=== PATIENT | female | born 1955 | race Caucasian/White ===

== ENCOUNTER 2019-09-12 19:51 | Inpatient (IN) ==
[2019-09-12] MEDS ORDERED: CARBOHYDRATES FOR HYPOGLYCEMIA PO PRN (22:46)
[2019-09-12] MEDS ORDERED: DEXTROSE 50% 50 ML SYRINGE IV PRN (22:46)
[2019-09-12] MEDS ORDERED: GLUCAGON FOR INJ 1 MG VIAL SQ PRN (22:46)
[2019-09-12] MEDS ORDERED: GLUCOSE 40% GEL 15 GM TUBE PO PRN (22:46)
[2019-09-12] MEDS ORDERED: GLUCOSE 10 TABS/TUBE PO PRN (22:46)
--- NOTE | 2019-09-12 23:05 | History & Physical Report ---
Date of Service September 12, 2019 Assessment & Plan (1) Hypoxemia: 64yo female with history of CHF, COPD presenting to outside facility with acute hypoxic respiratory failure with oxygen saturations in the 50's requiring BiPAP. Per outside workup, patient with markedly elevated BNP, mild vascular congestion on CXR. No evidence of PNA, PTX. No concerns for COVID-19 exposure per brother. Ddx to include acute exacerbation of CHF, COPD, PE, less likely PNA, Covid-19 -Admit to PCU -Obtain CXR -BiPAP, settings increased to 18/8, 75% FiO2 due to saturations of 91%. Will repeat ABG on these settings. If patient continues to be hypoxic may need intubation and mechanical ventilation. -Check D-dimer and LLE doppler, CTA if indicated to assess for PE -Nebs as needed -Continue Diuresis with Lasix 60mg IV daily -Daily weights, strict I/Os Present on Admission?: Yes (2) CAD (coronary artery disease): Patient with history of CAD. No reports of CP. Troponin at outside facility negative. EKG with nonspecific changes, rightward axis -Repeat troponin here -Continue ASA 81mg po daily -Continue Metoprolol 25mg po daily Present on Admission?: Yes (3) Seizure: Family denies recent seizure -Continue to monitor Present on Admission?: Yes (4) TASH and COPD overlap syndrome: Currenlty on BiPAP. Repeat ABG ordered -Maintain saturations 88-92% -Nebs PRN Present on Admission?: Yes (5) CHF (congestive heart failure): Unknown specifics -Diuresis as above -Echocardiogram -Continue metoprolol Present on Admission?: Yes (6) Edema of left lower extremity: LLE edema and cellulitis -Doppler -Ceftriaxone -Vancomycin, MRSA nasal swab F/E/N - diuresis as above. Awaiting labs to assess electrolytes. NPO for now Ppx - Heparin TID, Protonix while on BiPAP Code - Full per discussion with family. Patient would not want intermediate life support measures Dispo - Admit to PCU POC - Bill (brother) [phone] Admission and Anticipated Discharge Date Admission Date: September 12, 2019 History of Present Illness Chief Complaint: SOB Primary Care Provider: NO PCP Liane Brewer is a 64yo female presenting as a direct admission from [facility]. Patient is encephalopathic at present and is unable to answer questions reliably at this time. History obtained through chart review and telephone discussion with family. Patient's brother reports that patient was acting strangely today, mildly confused and somnolent as well as having poor balance. Also with complaint of LLE pain and swelling. She denied fevers or cough. Brother reports that patient rarely leaves her house and is not concerned about exposure to COVID-19. She presented to [facility] with complaint of bilateral LE edema, L>R as well as abdominal swelling, inability to void. She was noted to be hypoxic and cyanotic on arrival with saturations of 50-52%. She was placed on Bipap with reported improvement in her mental status. Exam with bilateral LE edema, L>R. She was administered 60mg of lasix IV as well as Ceftriaxone 2gm IV. CXR with reported increased vascular congestion. Transfer to [facility] requested because of inability to obtain a LE doppler during the weekends at [facility]. Patient has no listed PCP. [facility]: Lasix 60mg IV, Ceftriaxone 2gm, BiPAP BNP=27,900 Lactate=1.5 AB.28/68/64 on 100% FiO2 Allergies Allergy/AdvReac Type Severity Reaction Status Date / Time No Known Allergies Allergy Verified 09/12/19 23:09 Home Medications Home Medications Medication Instructions Recorded Confirmed Type bumetanide 1 mg PO BID 09/12/19 09/12/19 History levothyroxine 75 mcg PO DAILY 09/12/19 09/12/19 History metformin 500 mg PO BID 09/12/19 09/12/19 History metoprolol succinate 25 mg PO DAILY 09/12/19 09/12/19 History pantoprazole 40 mg PO DAILY 09/12/19 09/12/19 History umeclidinium-vilanterol [Anoro 1 INHALATION DAILY 09/12/19 History Ellipta] Past Med/Surg History Medical History (Updated 09/12/19 @ 23:26 by Susana Stoddard DO) Alcohol use History of heavy EtOH use. Brother reports she has not been drinking x 2-3 months CAD (coronary artery disease) CHF (congestive heart failure) COPD (chronic obstructive pulmonary disease) TASH and COPD overlap syndrome Seizure Surgical History (Updated 09/12/19 @ 23:10 by Susana Stoddard DO) No significant past surgical history Family History (Updated 09/12/19 @ 23:11 by Susana Stoddard DO) Other Diabetes Dyslipidemia Heart disease Hypertension Social History Smoking Status: Current every day smoker Second Hand Exposure: No; Do You Dip or Chew Tobacco: No; Tobacco Cessation Education Requested by Patient: No Preferred Language: Divehi Communication Ability: Dec. LOC Crane Oiler Required: No Beliefs That Will Affect Care: None Current Living Situation: Family Other Information That Helps Us Care for You: No Feels Safe at Home: Yes Safety Concerns: Feels Safe At This Time Review of Systems Review of Systems: Unobtainable due to cognitive status Physical Exam Physical Exam: General: patient encephalopathic, is not answering questions or following commands, fighting with staff moving all extremities Skin: warm, dry, intact, redness and swelling of LLE HEENT: NC/AT, pupils small, reactive,anicteric sclera, conjunctiva without injection, external ear normal to inspection and nontender, nares patent, moist mucus membranes, dentition intact, no oropharyngeal lesions, neck supple, trachea midline, no LAD, no thyromegaly, no JVD Heart: +S1/S2, regular, no m/r/g Lungs: diminished breath sounds, no rales/rhonchi/wheezes Abd: obese, soft, ND, no masses/organomegaly/ascites Ext: warm, 2+ pulses in UE/LE bilaterally, bilateral LE edema, L>R 2+ pitting with redness and warmth Neuro: encephalopathic, does not answer questions or follow commands Results & Data Results & Data ([facility]) Vital Signs (Past 12 Hours) Vital Signs Temp Pulse Pulse Resp BP Pulse Ox 09/12/19 22:09 89 22 91 09/12/19 22:02 36.5 C 77 20 125/78 93 Laboratory Results PENDING LABS Diagnostic Findings PENDING CXR PENDING LLE DOPPLER Code Status & VTE Plan Code Status FULL VTE Prophylaxis Plan VTE Prophylaxis will be ordered: Yes PG Care Time/CCT Total # of Minutes Spent Total Time Spent with Patient: Total time spent is greater than 50% in coordination of care (as documented) at patient's floor/unit and/or counseling patient: Coding Level of Care Code 96548 Initial Inpt Care Lvl 3 Diagnoses Hypoxemia R09.02 CAD (coronary artery disease) I25.10 Coronary Disease-Associated Artery/Lesion type: [place] artery [place] vs. transplanted heart: [place] heart Associated angina: without angina Seizure R56.9 TASH and COPD overlap syndrome G47.33; J44.9 CHF (congestive heart failure) I50.9 Heart failure type: unspecified Heart failure chronicity: unspecified Edema of left lower extremity R60.0 (1) CAD (coronary artery disease) Coronary Disease-Associated Artery/Lesion type: [place] artery [place] vs. transplanted heart: [place] heart Associated angina: without angina Qualified Code(s): I25.10 - Atherosclerotic heart disease of [place] coronary artery without angina pectoris (2) CHF (congestive heart failure) Heart failure type: unspecified Heart failure chronicity: unspecified Qualified Code(s): I50.9 - Heart failure, unspecified
[2019-09-12] MEDS ORDERED: PATIENT'S ALLERGY INFO NEEDS ENTERED SCH (23:15)
[2019-09-12] MEDS ORDERED: VANCOMYCIN CONSULT ACTIVE PRN (23:29)
[2019-09-12 23:35] LABS: Basophils # (auto) 0.02 K/uL (0-0.2); Basophils % (auto) 0.2 %; Eosinophils # (auto) 0.09 K/uL (0-0.5); Eosinophils % (auto) 0.9 %; Hematocrit (blood only) 45.9 % (37-47); Hemoglobin 13.8 g/dL (12.0-16.0); Immature Granulocytes # (auto) 0.02 K/uL (0.00-0.02); Immature Granulocytes % (auto) 0.2 %; Lymphocytes # (auto) 1.74 K/uL (1.2-3.4); Mean Corpuscular Hemoglobin 26.3 pg (25-34); Mean Corpuscular Hgb Conc 30.1 g/dL (32-36); Mean Corpuscular Volume 87.6 fL (80-100); Mean Platelet Volume 9.1 fL (7.4-10.4); Monocytes # (auto) 0.96 K/uL (0.11-0.59); Monocytes % (auto) 9.4 %; Neutrophils # (auto) 7.42 K/uL (1.4-6.5); Neutrophils % (auto) 72.3 %; Platelet Count 418 K/uL (130-400); RDW Coefficient of Variation 17.9 % (11.5-14.5); RDW Standard Deviation 56.9 fL (36.4-46.3); Red Blood Count 5.24 M/uL (4.2-5.4); White Blood Count 10.25 K/uL (4.8-10.8)
[2019-09-12 23:38] LABS: Base Excess ABG 3.6 mEq/L (-9-1.8); HCO3 ABG 34 mmol/L (19-24); Oxygen Saturation ABG 92.5 % (90-95); PCO2 ABG 85 mmHg (35-46); PO2 ABG 75 mmHg (80-95); pH ABG 7.22 (7.35-7.45)
[2019-09-12 23:39] LABS: Allen Test POS (Pos)
[2019-09-12 23:52] LABS: Alanine Aminotransferase 17 U/L (12-78); Albumin Level 3.2 gm/dl (3.4-5.0); Aspartate Aminotransferase 18 U/L (15-37); BUN Creatinine Ratio 23.4 (10-20); Bilirubin Direct < 0.1 mg/dl (0-0.2); Blood Urea Nitrogen 37 mg/dl (7-18); Calcium 8.6 mg/dl (8.5-10.1); Carbon Dioxide 32 mmol/L (21-32); Chloride 102 mmol/L (98-107); Creatinine Clr Calc Pharmacy 38.5 ml/min; Est GFR (African American) 39.1; Est GFR (Non-African American) 33.7; Glucose 114 mg/dl (70-99); Magnesium 2.1 mg/dl (1.8-2.4); Potassium 4.1 mmol/L (3.5-5.1); Sodium 138 mmol/L (136-145)
[2019-09-12 23:53] LABS: D Dimer 1670 ug/L FEU (0-500)
[2019-09-13] MEDS: ALBUT/IPRATROP 3MG/0.5MG NEB 3 ML VIAL NEB SCH ×4 (00:06→18:51)
[2019-09-13 00:14] LABS: Alkaline Phosphatase 131 U/L (45-117); Bilirubin,Total 0.3 mg/dl (0.2-1); NT Pro B Type Natriuretic Pept 20844 pg/ml (0-900); Phosphorus 4.2 mg/dl (2.5-4.9); Total Protein 7.6 gm/dl (6.4-8.2); Troponin I 0.078 ng/ml (0-0.045)
[2019-09-13] MEDS: INSULIN ASPART 100 UNITS/ML 3 ML PEN SC SCH ×4 (00:29→18:14)
[2019-09-13] MEDS ORDERED: VANCOMYCIN HCL 1,750 MG in SODIUM CHLORIDE 0.9% 500 ML IV ONE (00:30)
[2019-09-13 00:40] LABS: Amphetamines+Metham, Urine Neg (Neg); Barbiturates, Urine Neg (Neg); Benzodiazepine, Urine Neg (Neg); Cocaine, Urine Neg (Neg); MDMA (Ecstacy), Urine Neg (Neg); Methadone, Urine Neg (Neg); Opiate, Urine Neg (Neg); Phencyclidine, Urine Neg (Neg)
[2019-09-13] MEDS ORDERED: ALBUT/IPRATROP 3MG/0.5MG NEB 3 ML VIAL NEB STA (01:33)
[2019-09-13] MEDS ORDERED: methylPREDNISolone 80 MG in SYRINGE 0 ML IV ONE (01:45)
[2019-09-13] MEDS ORDERED: RAPID SEQUENCE INDUCTION BAG ONE (02:07)
[2019-09-13 02:14] LABS: iSTAT Arterial Blood Gas HCO3 35 meg/L (19-24); iSTAT Arterial Blood Gas pCO2 95 mmHg (35-46); iSTAT Arterial Blood Gas pH 7.18 (7.35-7.45); iSTAT Arterial Blood Gas pO2 97 mmHg (80-95); iSTAT Carbon Dioxide 38 mmol/L (24-31); iSTAT FiO2 80 %; iSTAT Site L Radial
[2019-09-13] MEDS ORDERED: PROPOFOL IV EMULSION 10 MG/ML 100 ML VIAL IV ONE (02:18)
[2019-09-13] MEDS ORDERED: ePHEDrine sulfate 50 MG/ML AMP ONE (02:23)
[2019-09-13] MEDS ORDERED: FENTANYL BOLUS FROM BAG IV PRN (02:28)
[2019-09-13] MEDS ORDERED: MIDAZOLAM HCL 1 MG/ML 2ML VIAL IV PRN (02:28)
[2019-09-13] MEDS ORDERED: STAT IV Infusion **Titration per Protocol STA ×2 (02:28→03:15)
[2019-09-13 02:29] LABS: T4 Free Thyroxine 1.01 ng/dl (0.8-1.6)
[2019-09-13] MEDS ORDERED: fentaNYL DRIP 1,250 MCG/250 ML BAG IV SCH (02:30)
--- NOTE | 2019-09-13 02:38 | Procedure Note ---
Procedure Note Date of Service September 13, 2019 Note INTUBATION PROCEDURE NOTE: Provider: BOB Hernandez Attending: Dr. Too Lazcano A time-out was completed verifying correct patient, procedure, site, positioning. Patient was evaluated and required intubation for acute hypoxic/hypercapnic respiratory failure with failure of BiPAP therapy. Sedative agent used: Etomidate 20 mg, midazolam 2 mg Paralysis agent used: Succinylcholine 100 mg Emergent consent was implied given patients rapidly declining clinical status and need for airway protection. The patient was prepared in the appropriate fashion. Sedation was achieved utilizing etomidate and diazepam followed by succinylcholine, per Dr. Zhao administration. The patient was easily pre-ventilated with BiPAP prior to intubation and was able to achieve adequate oxygenation. A 7.5 [place] endotracheal tube was placed with the use of gluidescope to 23 cm at the lip. The stylette was removed and balloon was inflated with 10mL of air. Appropriate Colorimetric change was appreciated. Bilateral breath sounds were heard without air sounds in the abdomen. Dr. Zhao was present for the entire procedure. Post Intubation Chest X-ray confirms placement without pneumothorax. Patient did become hypotensive temporarily following sedation administration, and 10 mg of ephedrine was administered by anesthesia with good result. Patient's blood pressure recovered and she remains normotensive following procedure without need for vasopressors. Coding CPT Codes Resuscitation - Resuscitation: 50225 Endotracheal Intubation, emergency ([id number]) [facility] – [place] Procedure Codes (Charges) Resuscitation Resuscitation: 02176 Endotracheal Intubation, emergency
--- NOTE | 2019-09-13 02:38 | Critical Care Consultation ---
Date of Consultation September 13, 2019 Assessment & Plan (1) Respiratory failure with hypoxia and hypercapnia: Reason Critically Ill: 64-year-old female with history of COPD, CHF with hypoxic hypercapnic respiratory failure and failed BiPAP requiring intubation with mechanical ventilation. Neuro - Encephalopathylikely secondary to hypercapnia as patient CO2 was elevated in the 80s the patient exhibited respiratory acidosis -Mild elevation of ammonia of 45, will continue to monitor for now -BUN mildly elevated, trending Cardiac - CHFpatient with history of CHF, BNP 20,000 -Given 60 IV Lasix at outside hospital with over 2 L output; continue with diuresis with scheduled IV Lasix 60 mg daily -Follow-up cardiac echo -Daily weights, strict I's and O's -Continue ASA, MTP -Continuous monitor on telemetry Respiratory - Acute hypoxic hypercapnic respiratory failurepatient initially placed on BiPAP but failed, required emergent intubation and now mechanically ventilated -Weaning vent as tolerated with ABGs - most likely mixed COPD versus CHF exacerbation in etiology -CTA chest preliminary read: bilateral opacities, small pleural effusions, no evidence of PE -Cannot rule out infectious pulmonary infiltrate at this time, see management of pneumonia below -PE?Patient with unilateral lower extremity swelling, elevated d-dimer, bilateral lower extremity ultrasound pending -No evidence of large PE on CTA chest, will follow-up final read -De-escalated airborne precautions as patient's rapid COVID-19 test negative, no fevers, no lymphocytopenia -Started on IV Solu-Medrol, continue scheduled duo nebs -Continue diuresis -Continuous monitoring on pulse ox and end-tidal CO2 GI - N.p.o. Continue PPI RENAL/LYTES - AKIno known history of CKD, no baseline creatinine. Creatinine elevated 1.6 on admission, unsure of etiology at this time -Maintain maps greater than 65 -Avoid nephrotoxins -We will hold on IV fluid resuscitation as patient has CHF and acute respiratory failure -Trend with routine BMPs, monitor electrolytes and replete as indicated - Foleystrict I's and O's ENDO - DM type IIholding home dose metformin, will transition to sliding scale -Hemoglobin A1c pending -ICU hyperglycemic protocol HypothyroidismTSH elevated, patient with home dose Synthroid, question medication compliance -T4 currently pending HEME - H&H stable, monitor routine CBCs ID - Pneumonia?Patient with respiratory failure and bilateral consolidations on CT chest, however afebrile and no leukocytosis -MRSA nasal PCR positive -Continue ceftriaxone and vancomycin for now -Procalcitonin pending, blood cultures pending, UA pending LINES/IV ACCESS - Peripheral IVs, ETT, OGT DVT PROPHYLAXIS - SCDs, heparin subcu Unilateral lower extremity edema of left legquestion DVT, no PE on CTA chest -Ultrasound lower extremity pending I have personally spent 70 minutes of critical care time in the direct management of this patient. This is a life/limb threatening event. This includes time spent evaluating patient, direct bedside care, chart review, placing orders, interpretation of diagnostic studies, discussion with consultants, patient, and family members, as well as other required patient management activities. This time is exclusive of all separately billable procedures, and teaching time and separate from and in addition to any other critical care service time. Thank you for allowing us to participate in the care of this patient. Please refer to my attending physician's documentation for any further recommendations. (2) Alcohol use: (3) Edema of left lower extremity: (4) COPD (chronic obstructive pulmonary disease): (5) CHF (congestive heart failure): (6) CAD (coronary artery disease): Supervising Physician Co-Signing Physician Notes Patient seen and examined. Discussed with critical care YULIA. Images were reviewed. Discussed with ICU nurse at bedside 64-year-old female with multiple medical conditions and potential noncompliance. She is admitted with hypoxemic and hypercarbic respiratory failure. Chest x- ray shows fluid overload confirmed on CT scan. She has a history of sleep disordered breathing is unclear if she is compliant with positive airway pressure in the outpatient setting. Differential diagnosis at this point in time would include COPD exacerbation, heart failure exacerbation, and obesity hypoventilation syndrome. Not entirely convinced there is an infectious process. Procalcitonin is pending. Will check echocardiogram. Continue diuretics and bronchodilators. Hold on additional steroids for now. Continue mechanical ventilation and sedation with propofol today. If needed can use low doses of Versed and fentanyl. Hold on nutrition in the hopes that the patient can be stabilized and extubated in the next 24 hours. If not, will need to initiate enteric tube feeding. Continue DVT prophylaxis. No family immediately available. Additional critical care time: 45 minutes History of Present Illness Attending Physician: Susana Stoddard DO History of Present Illness Ms. Arzate is a 64-year-old female with PMH of COPD (actively smokes 1 PPD), CHF, DM type II, hypothyroid, who initially presented to [facility] yesterday as encephalopathic and was hypoxic with sats in the 50s. The patient's brother had noticed that she was acting strangely and confused and somnolent throughout the day. She was placed on BiPAP, given IV Lasix and transferred to [facility] where she was admitted to PCU. Patient had become increasingly hypercapnic with worsening respiratory acidosis on BiPAP she was transferred to the ICU and required intubation with mechanical ventilation. She had bilateral lower extremity edema left greater than right, and was taken for CTA of the chest which was negative for visible PE. COVID-19 test was negative and she has no fevers or lymphocytopenia, and brother states that she hardly leaves her house, and airborne precautions were de-escalated on transfer. Prior to intubation patient was able to arouse with stimulation and follow commands but remains confused. Patient is now intubated and sedated and to remain in ICU for further management at this time. Allergies Allergy/AdvReac Type Severity Reaction Status Date / Time No Known Allergies Allergy Verified 09/12/19 23:09 Home Medications Home Medications Medication Instructions Recorded Confirmed Type bumetanide 1 mg PO BID 09/12/19 09/12/19 History levothyroxine 75 mcg PO DAILY 09/12/19 09/12/19 History metformin 500 mg PO BID 09/12/19 09/12/19 History metoprolol succinate 25 mg PO DAILY 09/12/19 09/12/19 History pantoprazole 40 mg PO DAILY 09/12/19 09/12/19 History umeclidinium-vilanterol [Anoro 1 INHALATION DAILY 09/12/19 History Ellipta] Patient History Medical History (Updated 09/13/19 @ 02:40 by BOB Iraheta) Alcohol use History of heavy EtOH use. Brother reports she has not been drinking x 2-3 months CAD (coronary artery disease) CHF (congestive heart failure) COPD (chronic obstructive pulmonary disease) TASH and COPD overlap syndrome Seizure Surgical History (Updated 09/12/19 @ 23:10 by Susana Stoddard DO) No significant past surgical history Family History (Updated 09/12/19 @ 23:11 by Susana Stoddard DO) Other Diabetes Dyslipidemia Heart disease Hypertension Social History Smoking Status: Current every day smoker Second Hand Exposure: No; Do You Dip or Chew Tobacco: No; Tobacco Cessation Education Requested by Patient: No Preferred Language: Argentine Communication Ability: Dec. LOC Computer Meteorologist Required: No Beliefs That Will Affect Care: None Current Living Situation: Family Other Information That Helps Us Care for You: No Feels Safe at Home: Yes Safety Concerns: Feels Safe At This Time Review of Systems Review of Systems: Unobtainable due to cognitive status and Unobtainable due to reduced consciousness Physical Exam Constitutional: + ill appearing, + frail appearing and + mechanically ventilated Eyes: PERRL, conjunctivae normal, anicteric sclerae ENMT: external ear and nose normal, oropharynx normal Neck: trachea midline, no thyromegaly Respiratory: Diminished breath sounds bilaterally, no wheezing or crackles auscultated. Symmetrical chest wall movement. Cardiovascular: Rate/Rhythm: regular rate and regular rhythm Heart Sounds: normal S1 and normal S2 Vessels: no JVD Unilateral edema in left lower extremity Gastrointestinal (Abdomen): Abdomen soft, distended, bowel sounds auscultated all 4 quadrants Musculoskeletal: Extremities: + clubbing Neurologic: PERRL, EOMI, accommodation nl, no face palsy, no dysarthria Psychiatric: Orientation: oriented to person; + not oriented to place and + not oriented to time Genitourinary: Indwelling Avery catheter Results & Data Results & Data ([facility]) Vital Signs (Past 12 Hours) Vital Signs Temp Pulse Pulse Resp BP Pulse Ox Pulse Ox 09/13/19 00:10 66 17 95 09/13/19 00:08 66 17 95 09/12/19 23:27 36.4 C L 71 20 125/76 91 09/12/19 23:00 95 09/12/19 22:09 89 22 91 09/12/19 22:02 36.5 C 77 20 125/78 93 Coding Level of Care Code Critical Care 1st 30-74 mins Diagnoses Respiratory failure with hypoxia and hypercapnia J96.91; J96.92 Alcohol use Z72.89 Edema of left lower extremity R60.0 COPD (chronic obstructive pulmonary disease) J44.9 CHF (congestive heart failure) I50.9 Heart failure chronicity: unspecified Heart failure type: unspecified CAD (coronary artery disease) I25.10 Associated angina: without angina Coronary Disease-Associated Artery/Lesion type: [place] artery [place] vs. transplanted heart: [place] heart Time Spent (min) 84 (1) CAD (coronary artery disease) Associated angina: without angina Coronary Disease-Associated Artery/Lesion type: [place] artery [place] vs. transplanted heart: [place] heart Qualified Code(s): I25.10 - Atherosclerotic heart disease of [place] coronary artery without angina pectoris (2) CHF (congestive heart failure) Heart failure chronicity: unspecified Heart failure type: unspecified Qualified Code(s): I50.9 - Heart failure, unspecified
[2019-09-13] MEDS: propofoL 1,000 MG/100 ML VIAL IV SCH ×3 (02:45→19:16)
[2019-09-13] MEDS: fentaNYL citrate 100 MCG/2 ML VIAL IV PRN (03:14)
[2019-09-13] MEDS ORDERED: PROPOFOL BOLUS FROM BAG IV PRN (03:15)
[2019-09-13] MEDS ORDERED: ICU PROTOCOL FOR HYPERGLYCEMIA PRN (03:16)
[2019-09-13 03:31] LABS: iSTAT Allen Test Pass; iSTAT Art Bld Gas pCO2 Correct 49 mmHg (35-46); iSTAT Art Bld Gas pH Corrected 7.409 (7.35-7.45); iSTAT Arterial Blood Gas HCO3 31 meg/L (19-24); iSTAT Arterial Blood Gas pCO2 50 mmHg (35-46); iSTAT Arterial Blood Gas pO2 68 mmHg (80-95); iSTAT Arterial Blood Gas pO2 C 66; iSTAT Carbon Dioxide 32 mmol/L (24-31); iSTAT FiO2 80 %; iSTAT Hematocrit 44 % (37-47); iSTAT Potassium 3.9 mmol/L (3.3-5.0); iSTAT Site L Radial; iSTAT Sodium 140 mmol/L (135-144)
[2019-09-13 03:42] LABS: Basophils # (auto) 0.02 K/uL (0-0.2); Basophils % (auto) 0.2 %; Eosinophils # (auto) 0.02 K/uL (0-0.5); Eosinophils % (auto) 0.2 %; Hematocrit (blood only) 45.9 % (37-47); Hemoglobin 13.9 g/dL (12.0-16.0); Immature Granulocytes # (auto) 0.01 K/uL (0.00-0.02); Immature Granulocytes % (auto) 0.1 %; Lymphocytes # (auto) 0.92 K/uL (1.2-3.4); Lymphocytes % (auto) 9.5 %; Mean Corpuscular Hemoglobin 26.4 pg (25-34); Mean Corpuscular Hgb Conc 30.3 g/dL (32-36); Mean Corpuscular Volume 87.1 fL (80-100); Mean Platelet Volume 9.1 fL (7.4-10.4); Monocytes # (auto) 0.42 K/uL (0.11-0.59); Monocytes % (auto) 4.3 %; Neutrophils # (auto) 8.29 K/uL (1.4-6.5); Neutrophils % (auto) 85.7 %; Nucleated RBC # (auto) 0.03 K/uL (0-0); Nucleated RBC % (auto) 0.3 %; Platelet Count 321 K/uL (130-400); RDW Coefficient of Variation 17.6 % (11.5-14.5); RDW Standard Deviation 55.9 fL (36.4-46.3); Red Blood Count 5.27 M/uL (4.2-5.4); White Blood Count 9.68 K/uL (4.8-10.8)
[2019-09-13] MEDS ORDERED: ePHEDrine sulfate 50 MG/ML AMP IV STA (03:48)
[2019-09-13 04:01] LABS: Albumin Level 3.1 gm/dl (3.4-5.0); BUN Creatinine Ratio 23.5 (10-20); Calcium 8.5 mg/dl (8.5-10.1); Creatinine Clr Calc Pharmacy 40.6 ml/min; Est GFR (African American) 41.6; Est GFR (Non-African American) 35.9; Potassium 4.2 mmol/L (3.5-5.1)
[2019-09-13 04:13] LABS: Albumin Globulin Ratio 0.7 (0.9-2); Bilirubin,Total 0.5 mg/dl (0.2-1); Globulin 4.7 gm/dl (2.5-4.0); Phosphorus 3.6 mg/dl (2.5-4.9); Total Protein 7.8 gm/dl (6.4-8.2)
[2019-09-13] MEDS: HEPARIN SOD 5,000 UNIT/0.5 ML VIAL SQ SCH ×3 (05:16→22:13)
[2019-09-13] MEDS: LEVOTHYROXINE SODIUM 75 MCG TABLET PO SCH (05:17)
[2019-09-13 05:59] LABS: iSTAT Allen Test Pass; iSTAT Art Bld Gas pCO2 Correct 40 mmHg (35-46); iSTAT Art Bld Gas pH Corrected 7.463 (7.35-7.45); iSTAT Arterial Blood Gas HCO3 29 meg/L (19-24); iSTAT Arterial Blood Gas pCO2 41 mmHg (35-46); iSTAT Arterial Blood Gas pH 7.46 (7.35-7.45); iSTAT Arterial Blood Gas pO2 71 mmHg (80-95); iSTAT Arterial Blood Gas pO2 C 68; iSTAT Carbon Dioxide 30 mmol/L (24-31); iSTAT FiO2 80 %; iSTAT Hematocrit 44 % (37-47); iSTAT Potassium 3.9 mmol/L (3.3-5.0); iSTAT Site R Radial; iSTAT Sodium 140 mmol/L (135-144)
--- NOTE | 2019-09-13 06:18 | XRay Report ---
XR chest 1V portable CLINICAL HISTORY: intubation tube position COMPARISON STUDY: 09/12/2019 FINDINGS: Endotracheal tube 4 cm above the pradip. Heart remains enlarged. Persistent consolidative c hanges left lung base. Unchanged pulmonary vascular congestion IMPRESSION: 1. Endotracheal tube 4 cm above the pradip. 2. Nasogastric tube inferior to the diaphragm. 3. Study is otherwise unchanged. ACT 112: Negative or not required by law. The above report was generated using voice recognition software. It may contain grammatical, syntax or spelling errors. Electronically signed by: Alvaro Mauro M.D. 09/13/2019 6:16 AM
--- NOTE | 2019-09-13 06:44 | CT Scan Report ---
CT angio chest PE protocol CT DOSE: 678.51 mGy.cm HISTORY: Chest pain. Dyspnea. PE TECHNIQUE: Multiaxial CT images of the chest were performed following the intravenous administration of contrast to evaluate the pulmonary arteries. Maximal intensity projection images were also obtaine d. A dose lowering technique was utilized adhering to the principles of ALARA. COMPARISON STUDY: None. FINDINGS: Thoracic aorta is normal in course and caliber. Pulmonary vasculature enhances appropriatel y. Bibasilar parenchymal infiltrates are present combine with basilar consolidative change. The heart is moderately enlarged with a small pericardial effusion. The pulmonary vasculature is prominent. There are interstitial changes in the mid to upper lungs bila terally. IMPRESSION: 1. Study is negative for pulmonary embolus. 2. Bibasilar parenchymal infiltrates. 3. Interstitial changes in the mid upper lungs bilaterally. ACT 112: Negative or not required by law. The above report was generated using voice recognition software. It may contain grammatical, syntax or spelling errors. Electronically signed by: Alvaro Mauro M.D. 09/13/2019 6:42 AM
--- NOTE | 2019-09-13 07:01 | CT Scan Report ---
CT head/brain wo con CT DOSE: 614.27 mGy.cm HISTORY: Mental status change AMS TECHNIQUE: Multiaxial CT images of the head were performed without the use of intravenous contrast. A dose lowering technique was utilized adhering to the principles of ALARA. Comparison: None. Findings: The paranasal sinuses and mastoid air cells are clear. The calvarium and skull base are int act. The ventricles and sulci are within normal limits. There is no mass, hematoma, midline shift, or acute infarct. Impression: No acute intracranial abnormality. ACT 112: Negative or not required by law. The above report was generated using voice recognition software. It may contain grammatical, syntax or spelling errors. Electronically signed by: Alvaro Mauro M.D. 09/13/2019 6:59 AM
--- NOTE | 2019-09-13 07:14 | Ultrasound Report ---
US venous doppler LE LT CLINICAL HISTORY: swelling, redness PAIN. EDEMA. COMPARISON STUDY: No previous studies for comparison. FINDINGS: Real-time and color flow Doppler imaging were performed. Flow was seen within the femoral, popliteal and calf veins with no intraluminal thrombus demonstrated. The saphenous vein is patent. IMPRESSION: No evidence of deep venous thrombosis. 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 ACT 112: Negative or not required by law. The above report was generated using voice recognition software. It may contain grammatical, syntax or spelling errors. Electronically signed by: Alvaro Mauro M.D. 09/13/2019 7:13 AM
--- NOTE | 2019-09-13 07:40 | XRay Report ---
XR chest 1V portable CLINICAL HISTORY: SOB dyspnea COMPARISON STUDY: No previous studies for comparison. FINDINGS: Moderate cardiomegaly. Prominent parenchymal and bronchovascular prominence throughout both hemithoraces. Potential superimposed infiltrate left base. IMPRESSION: 1. Congestive heart failure. 2. Superimposed infiltrate left base. ACT 112: Negative or not required by law. The above report was generated using voice recognition software. It may contain grammatical, syntax or spelling errors. Electronically signed by: Alvaro Mauro M.D. 09/13/2019 7:39 AM
[2019-09-13] MEDS: FORMOTEROL 20 MCG/2 ML VIAL NEB SCH ×2 (07:48→18:51)
[2019-09-13] MEDS ORDERED: SUCCINYLCHOLINE CHLORIDE 20 MG/ML 10 ML VIAL IV ONE (07:48)
[2019-09-13] MEDS ORDERED: ETOMIDATE 2 MG/ML 20 ML VIAL IV ONE (07:48)
[2019-09-13] MEDS ORDERED: MIDAZOLAM HCL 5 MG/ML VIAL IV ONE (07:48)
[2019-09-13] MEDS: BUDESONIDE 0.5 MG/2 ML VIAL (PULMICORT) NEB SCH ×2 (07:48→18:51)
[2019-09-13] MEDS ORDERED: PNEUMOCOCCAL Polysaccharide Vaccine 25mcg/0.5mL vial/Syr IM ONE (08:00)
[2019-09-13 08:02] LABS: Estimated Average Glucose 131 mg/dl; Hemoglobin A1C 6.2 % (4.5-5.6)
[2019-09-13] MEDS ORDERED: ICU ELECTROLYTE REPLACEMENT PROTOCOL PRN (08:08)
--- NOTE | 2019-09-13 08:22 | Hospitalist Progress Note ---
Date of Service September 13, 2019 Assessment & Plan (1) Hypoxemia: 64yo female with history of CHF, COPD presenting to outside facility with acute hypoxic respiratory failure with oxygen saturations in the 50's requiring BiPAP. Per outside workup, patient with markedly elevated BNP, mild vascular congestion on CXR. No evidence of PNA, PTX. No concerns for COVID-19 exposure per brother. Ddx to include acute exacerbation of CHF, COPD, PE, less likely PNA, Covid-19 Pt decompensated shortly after admission and is now intubated with mechanical ventilation -Continue Diuresis with Lasix 60mg IV daily possible Pneumonia, COVID NEGATIVE->ceftriaxone and azithromycin CTA 09/12/29 IMPRESSION: 1. Study is negative for pulmonary embolus. 2. Bibasilar parenchymal infiltrates. 3. Interstitial changes in the mid upper lungs bilaterally. (2) CAD (coronary artery disease): Patient with history of CAD. No reports of CP. Troponin 0.07 x2 EKG with nonspecific changes, rightward axis -Continue ASA 81mg daily -Continue Metoprolol 25mg daily (3) Seizure: Family denies recent seizure no typically on medicaiton (4) TASH and COPD overlap syndrome: maintain brhochodialators (5) CHF (congestive heart failure): Unknown specifics of EF -Diuresis as above -Echocardiogram -Continue metoprolol (6) Edema of left lower extremity: LLE edema and cellulitis -Doppler no DVT but note of occlusion of left femoral and popliteal artery with collateral reconstitution -Ceftriaxone - Vancomycin, MRSA nasal swab + insulin sliding scale was given iv steroids x1 Ppx - Heparin TID, Protonix while on BiPAP Code - Full per discussion with family. 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 Head exam is normocephalic atraumatic no scleral icterus Neck is without JVD, thyromegaly, or carotid bruits. Trachea is midline Lungs are coarse bilaterally Cardiac exam, Rhythm is regular.. No murmurs, rubs or gallops. Abdominal exam reveals hypoactive bowel sounds distended tympanitic Extremities left extremity is larger than right some redness Neurologic exam is not able to be assessed Skin is without bruises or rashes Results & Data Results & Data ([facility]) Vital Signs (Past 12 Hours) Vital Signs Temp Pulse Pulse Resp BP BP Pulse Ox 09/13/19 08:03 72 16 92 09/13/19 07:35 68 09/13/19 07:30 68 122/67 95 09/13/19 07:15 68 122/67 94 09/13/19 07:09 70 124/65 93 09/13/19 07:01 69 97 09/13/19 07:00 69 121/64 97 09/13/19 06:48 76 126/73 92 09/13/19 06:01 68 16 99 09/13/19 06:00 68 99 09/13/19 05:21 66 113/63 100 09/13/19 05:19 65 111/62 99 09/13/19 05:17 64 113/59 L 100 09/13/19 05:15 64 112/63 99 09/13/19 05:13 64 112/61 99 09/13/19 05:11 64 109/61 99 09/13/19 05:09 65 105/63 100 09/13/19 05:07 64 112/61 99 09/13/19 05:05 64 110/60 99 09/13/19 05:03 63 107/59 L 99 09/13/19 05:01 65 105/59 L 98 09/13/19 05:00 65 98 09/13/19 04:59 65 119/62 99 09/13/19 04:57 64 106/59 L 99 09/13/19 04:55 62 107/59 L 99 09/13/19 04:53 62 104/57 L 99 09/13/19 04:51 61 104/59 L 99 09/13/19 04:49 63 105/59 L 99 09/13/19 04:47 63 107/61 99 09/13/19 04:45 64 108/58 L 99 09/13/19 04:43 72 103/61 99 09/13/19 04:41 62 105/59 L 98 09/13/19 04:39 61 101/57 L 98 09/13/19 04:37 60 104/57 L 98 09/13/19 04:35 60 99/56 L 98 09/13/19 04:33 61 99/57 L 98 09/13/19 04:31 60 100/57 L 98 09/13/19 04:29 61 100/57 L 98 09/13/19 04:27 60 105/57 L 97 09/13/19 04:25 63 100/60 97 09/13/19 04:23 62 106/58 L 97 09/13/19 04:20 61 102/60 97 09/13/19 04:18 62 97/61 L 97 09/13/19 04:16 62 98/51 L 97 09/13/19 04:15 62 101/56 L 96 09/13/19 04:13 61 96/52 L 97 09/13/19 04:10 59 L 96/55 L 97 09/13/19 04:08 60 98/58 L 97 09/13/19 04:06 60 97/54 L 97 09/13/19 04:04 60 97/56 L 97 09/13/19 04:02 61 98/56 L 96 09/13/19 04:01 97.7 F 62 96 09/13/19 04:00 61 101/59 L 96 09/13/19 03:22 20 09/13/19 02:39 69 24 93 09/13/19 01:51 72 17 92 09/13/19 00:10 66 17 95 09/13/19 00:08 66 17 95 09/12/19 23:27 97.5 F L 71 20 125/76 91 09/12/19 23:00 09/12/19 22:09 89 22 91 09/12/19 22:02 97.7 F 77 20 125/78 93 Pulse Ox 09/13/19 08:03 09/13/19 07:35 09/13/19 07:30 09/13/19 07:15 09/13/19 07:09 09/13/19 07:01 09/13/19 07:00 09/13/19 06:48 09/13/19 06:01 09/13/19 06:00 09/13/19 05:21 09/13/19 05:19 09/13/19 05:17 09/13/19 05:15 09/13/19 05:13 09/13/19 05:11 09/13/19 05:09 09/13/19 05:07 09/13/19 05:05 09/13/19 05:03 09/13/19 05:01 09/13/19 05:00 09/13/19 04:59 09/13/19 04:57 09/13/19 04:55 09/13/19 04:53 09/13/19 04:51 09/13/19 04:49 09/13/19 04:47 09/13/19 04:45 09/13/19 04:43 09/13/19 04:41 09/13/19 04:39 09/13/19 04:37 09/13/19 04:35 09/13/19 04:33 09/13/19 04:31 09/13/19 04:29 09/13/19 04:27 09/13/19 04:25 09/13/19 04:23 09/13/19 04:20 09/13/19 04:18 09/13/19 04:16 09/13/19 04:15 09/13/19 04:13 09/13/19 04:10 09/13/19 04:08 09/13/19 04:06 09/13/19 04:04 09/13/19 04:02 09/13/19 04:01 09/13/19 04:00 09/13/19 03:22 09/13/19 02:39 09/13/19 01:51 09/13/19 00:10 09/13/19 00:08 09/12/19 23:27 09/12/19 23:00 95 09/12/19 22:09 09/12/19 22:02 PG Care Time/CCT Total # of Minutes Spent Total Time Spent with Patient: Total time spent is greater than 50% in coordination of care (as documented) at patient's floor/unit and/or counseling patient: Coding Level of Care Code 96454 Subseq Hosp Care Lvl 2 Diagnoses Hypoxemia R09.02 CAD (coronary artery disease) I25.10 Associated angina: without angina Coronary Disease-Associated Artery/Lesion type: [place] artery [place] vs. transplanted heart: [place] heart Seizure R56.9 TASH and COPD overlap syndrome G47.33; J44.9 CHF (congestive heart failure) I50.9 Heart failure chronicity: unspecified Heart failure type: unspecified Edema of left lower extremity R60.0 (1) CAD (coronary artery disease) Associated angina: without angina Coronary Disease-Associated Artery/Lesion type: [place] artery [place] vs. transplanted heart: [place] heart Qualified Code(s): I25.10 - Atherosclerotic heart disease of [place] coronary artery without angina pectoris (2) CHF (congestive heart failure) Heart failure chronicity: unspecified Heart failure type: unspecified Qualified Code(s): I50.9 - Heart failure, unspecified
[2019-09-13] MEDS ORDERED: PANTOprazole 40 MG TAB PO SCH (09:00)
[2019-09-13] MEDS ORDERED: METOPROLOL SUCC 25MG EXT REL TAB PO SCH (09:00)
[2019-09-13] MEDS: cefTRIAXone SODIUM 2,000 MG in DEXTROSE 5% 50 ML IV SCH (09:08)
[2019-09-13] MEDS: ASPIRIN 81 MG ECTAB PO SCH (09:08)
[2019-09-13] MEDS: PANTOprazole 40 MG TAB PO SCH (09:08)
[2019-09-13] MEDS: FUROSEMIDE 60 MG in SYRINGE 0 ML IV SCH (09:08)
[2019-09-13] MEDS: AZITHROMYCIN 250 MG TAB PO SCH (09:09)
--- NOTE | 2019-09-13 10:02 | Pharmacy Report ---
Pharmacy Abx Initial Consult - Date of Service September 13, 2019 - Pharmacy Dosing Scope Date of Consult: 09/13/19 Consultation requested by: Dr. Vonnie Stoddard, verified by Dr Klein to continue Pharmacy is consulted to initiate Vancomycin IV dosing therapy, order appropriate labs and adjust drug dose/frequency. - Subjective The patient is a 64 year old F admitted on 09/12/19 22:00 with PMH of COPD, CHF with hypoxic hypercapnic respiratory failure and failed BiPAP requiring int ubation with mechanical ventilation. - Objective Height: 5 ft 6 in Weight: 83.5 kg Vital Signs (Past 12hrs): Vital Signs Temp Pulse Pulse Resp BP BP Pulse Ox 09/13/19 08:03 72 16 92 09/13/19 07:35 68 09/13/19 07:30 68 122/67 95 09/13/19 07:15 68 122/67 94 09/13/19 07:09 70 124/65 93 09/13/19 07:01 69 97 09/13/19 07:00 69 121/64 97 09/13/19 06:48 76 126/73 92 09/13/19 06:01 68 16 99 09/13/19 06:00 68 99 09/13/19 05:21 66 113/63 100 09/13/19 05:19 65 111/62 99 09/13/19 05:17 64 113/59 L 100 09/13/19 05:15 64 112/63 99 09/13/19 05:13 64 112/61 99 09/13/19 05:11 64 109/61 99 09/13/19 05:09 65 105/63 100 09/13/19 05:07 64 112/61 99 09/13/19 05:05 64 110/60 99 09/13/19 05:03 63 107/59 L 99 09/13/19 05:01 65 105/59 L 98 09/13/19 05:00 65 98 09/13/19 04:59 65 119/62 99 09/13/19 04:57 64 106/59 L 99 09/13/19 04:55 62 107/59 L 99 09/13/19 04:53 62 104/57 L 99 09/13/19 04:51 61 104/59 L 99 09/13/19 04:49 63 105/59 L 99 09/13/19 04:47 63 107/61 99 09/13/19 04:45 64 108/58 L 99 09/13/19 04:43 72 103/61 99 09/13/19 04:41 62 105/59 L 98 09/13/19 04:39 61 101/57 L 98 09/13/19 04:37 60 104/57 L 98 09/13/19 04:35 60 99/56 L 98 09/13/19 04:33 61 99/57 L 98 09/13/19 04:31 60 100/57 L 98 09/13/19 04:29 61 100/57 L 98 09/13/19 04:27 60 105/57 L 97 09/13/19 04:25 63 100/60 97 09/13/19 04:23 62 106/58 L 97 09/13/19 04:20 61 102/60 97 09/13/19 04:18 62 97/61 L 97 09/13/19 04:16 62 98/51 L 97 09/13/19 04:15 62 101/56 L 96 09/13/19 04:13 61 96/52 L 97 09/13/19 04:10 59 L 96/55 L 97 09/13/19 04:08 60 98/58 L 97 09/13/19 04:06 60 97/54 L 97 09/13/19 04:04 60 97/56 L 97 09/13/19 04:02 61 98/56 L 96 09/13/19 04:01 36.5 C 62 96 09/13/19 04:00 61 101/59 L 96 09/13/19 03:22 20 09/13/19 02:39 69 24 93 09/13/19 01:51 72 17 92 09/13/19 00:10 66 17 95 09/13/19 00:08 66 17 95 09/12/19 23:27 36.4 C L 71 20 125/76 91 09/12/19 23:00 09/12/19 22:09 89 22 91 09/12/19 22:02 36.5 C 77 20 125/78 93 Pulse Ox 09/13/19 08:03 09/13/19 07:35 09/13/19 07:30 09/13/19 07:15 09/13/19 07:09 09/13/19 07:01 09/13/19 07:00 09/13/19 06:48 09/13/19 06:01 09/13/19 06:00 09/13/19 05:21 09/13/19 05:19 09/13/19 05:17 09/13/19 05:15 09/13/19 05:13 09/13/19 05:11 09/13/19 05:09 09/13/19 05:07 09/13/19 05:05 09/13/19 05:03 09/13/19 05:01 09/13/19 05:00 09/13/19 04:59 09/13/19 04:57 09/13/19 04:55 09/13/19 04:53 09/13/19 04:51 09/13/19 04:49 09/13/19 04:47 09/13/19 04:45 09/13/19 04:43 09/13/19 04:41 09/13/19 04:39 09/13/19 04:37 09/13/19 04:35 09/13/19 04:33 09/13/19 04:31 09/13/19 04:29 09/13/19 04:27 09/13/19 04:25 09/13/19 04:23 09/13/19 04:20 09/13/19 04:18 09/13/19 04:16 09/13/19 04:15 09/13/19 04:13 09/13/19 04:10 09/13/19 04:08 09/13/19 04:06 09/13/19 04:04 09/13/19 04:02 09/13/19 04:01 09/13/19 04:00 09/13/19 03:22 09/13/19 02:39 09/13/19 01:51 09/13/19 00:10 09/13/19 00:08 09/12/19 23:27 09/12/19 23:00 95 09/12/19 22:09 09/12/19 22:02 Lab Results (24hrs): Laboratory Tests (24 Hours) 09/13/19 09/13/19 09/12/19 03:30 03:30 22:52 WBC 9.68 Neut # (Auto) 8.29 H Creatinine 1.51 H Est Cr Clr Drug Dosing 40.6 Procalcitonin 0.13 09/12/19 09/12/19 22:46 22:46 WBC 10.25 Neut # (Auto) 7.42 H Creatinine 1.59 H Est Cr Clr Drug Dosing 38.5 Procalcitonin Laboratory Tests 09/12/19 09/13/19 22:30 00:05 Nasal Screen MRSA (PCR) Positive A COVID-19 PCR NEGATIVE Micro Results: 09/13/19 03:35 Aerobic Blood Culture - Pending Blood Anaerobic Blood Culture - Pending 09/13/19 03:30 Aerobic Blood Culture - Pending Blood Anaerobic Blood Culture - Pending - Assessment & Plan Assessment 64 year old F admitted with possible Pneumonia, respiratory failure and bilateral consolidations on CT chest, afebrile, no leukocytosis -MRSA nasal PCR positive -COVID 19 PCR negative -Procalcitonin 0.13, blood cultures pending, UA pending Plan IV Vancomycin, Ceftriaxone, and Azithromycin for treatment of pneumonia Vancomycin IV Patient meets criteria for vancomycin AUC dosing nomogram AUC/MARIYA is the preferred PK/PD target for vancomycin Target AUC/MARIYA = 400-600 AUC guided dosing is effective and associated with decreased risk of nephrotoxicity * Trough level ordered for 09/15/19 Ceftriaxone 2g IV Q24H Azithromycin 250mg PO daily (via GT at this time) Pharmacy will continue to follow and will adjust dose/frequency as necessary. Thank you.
[2019-09-13 10:14] LABS: Appearance Urine Clear (Clear); Bacteria Urine Automated Negative (Negative); Bilirubin Urine Negative (Negative); Blood Urine Trace (Negative); Color Urine Yellow; Epithelial Cell Urine Auto >30 /lpf (0-5); Glucose Urine UA Negative (Negative); Ketones Urine Trace (Negative); Leukocyte Esterase Urine 3+ (Negative); Nitrite Urine Negative (Negative); Protein Urine Negative (Negative); Specific Gravity Urine 1.029 (1.000-1.030); Urobilinogen Urine Negative (Negative); WBC Urine Automated >30 /hpf (0-5)
--- NOTE | 2019-09-13 13:34 | Electrocardiogram Report ---
Test Reason : Blood Pressure : / mmHG Vent. Rate : 079 BPM Atrial Rate : 079 BPM P-R Int : 168 ms QRS Dur : 078 ms QT Int : 394 ms P-R-T Axes : 043 136 011 degrees QTc Int : 451 ms Normal sinus rhythm Possible Left atrial enlargement Right axis deviation Abnormal ECG No previous ECGs available Confirmed by Umesh Childers ([id number]) on 09/13/2019 1:34:31 PM Referred By: Susana Stoddard Confirmed By:Umesh Childers
--- NOTE | 2019-09-13 13:42 | Electrocardiogram Report ---
Test Reason : Blood Pressure : / mmHG Vent. Rate : 062 BPM Atrial Rate : 062 BPM P-R Int : 152 ms QRS Dur : 076 ms QT Int : 470 ms P-R-T Axes : 021 139 -67 degrees QTc Int : 477 ms Normal sinus rhythm Right axis deviation Prolonged QT Abnormal ECG When compared with ECG of 12-SEP-2019 22:11, (unconfirmed) T wave inversion now evident in Inferior leads T wave inversion more evident in Anterior leads Confirmed by Umesh Childers ([id number]) on 09/13/2019 1:41:35 PM Referred By: Susana Stoddard Confirmed By:Umesh Childers
[2019-09-13] MEDS ORDERED: VANCOMYCIN HCL 1,500 MG in SODIUM CHLORIDE 0.9% 500 ML IV SCH (18:00)
[2019-09-13] MEDS: METOPROLOL TARTRATE 25 MG TAB PO SCH (22:13)
[2019-09-14] MEDS: ALBUT/IPRATROP 3MG/0.5MG NEB 3 ML VIAL NEB SCH ×4 (00:06→19:14)
[2019-09-14] MEDS: INSULIN ASPART 100 UNITS/ML 3 ML PEN SC SCH ×3 (01:05→14:49)
[2019-09-14] MEDS: propofoL 1,000 MG/100 ML VIAL IV SCH ×2 (02:56→07:07)
[2019-09-14 04:20] LABS: Basophils # (auto) 0.02 K/uL (0-0.2); Basophils % (auto) 0.2 %; Eosinophils # (auto) 0.11 K/uL (0-0.5); Eosinophils % (auto) 0.9 %; Hematocrit (blood only) 41.3 % (37-47); Hemoglobin 12.6 g/dL (12.0-16.0); Immature Granulocytes # (auto) 0.04 K/uL (0.00-0.02); Immature Granulocytes % (auto) 0.3 %; Lymphocytes # (auto) 1.63 K/uL (1.2-3.4); Lymphocytes % (auto) 12.7 %; Mean Corpuscular Hemoglobin 25.7 pg (25-34); Mean Corpuscular Hgb Conc 30.5 g/dL (32-36); Mean Corpuscular Volume 84.1 fL (80-100); Mean Platelet Volume 9.3 fL (7.4-10.4); Monocytes # (auto) 1.26 K/uL (0.11-0.59); Monocytes % (auto) 9.9 %; Neutrophils # (auto) 9.73 K/uL (1.4-6.5); Platelet Count 361 K/uL (130-400); RDW Coefficient of Variation 17.5 % (11.5-14.5); RDW Standard Deviation 53.8 fL (36.4-46.3); Red Blood Count 4.91 M/uL (4.2-5.4); White Blood Count 12.79 K/uL (4.8-10.8)
[2019-09-14 04:51] LABS: Hypochromasia Present; Polychromasia 1+; Schistocytes Occasional; Target Cells 1+
[2019-09-14] MEDS: fentaNYL citrate 100 MCG/2 ML VIAL IV PRN (04:54)
[2019-09-14 05:01] LABS: Albumin Level 2.7 gm/dl (3.4-5.0); BUN Creatinine Ratio 25.1 (10-20); Calcium 8.5 mg/dl (8.5-10.1); Creatinine Clr Calc Pharmacy 51.8 ml/min; Est GFR (Non-African American) 48.4; Potassium 3.9 mmol/L (3.5-5.1)
[2019-09-14 05:19] LABS: Albumin Globulin Ratio 0.6 (0.9-2); Bilirubin,Total 0.5 mg/dl (0.2-1); Globulin 4.3 gm/dl (2.5-4.0)
[2019-09-14] MEDS: HEPARIN SOD 5,000 UNIT/0.5 ML VIAL SQ SCH ×3 (06:10→21:22)
[2019-09-14] MEDS: LEVOTHYROXINE SODIUM 75 MCG TABLET PO SCH (06:10)
--- NOTE | 2019-09-14 06:16 | Procedure Note ---
Procedure Note Date of Service September 14, 2019 Note ENDURANCE CATHETER PROCEDURE NOTE: Procedure: Financial Associate Indwelling Peripherally Inserted IV Catheter Placement Attending: Dr. Too Lazcano Provider: BOB Hernandez Indication: Need for IV Access, Poor Vascular Access Anesthesia: None Unable to obtain verbal bowl consent as patient is currently intubated and sedated. A time-out was completed verifying correct patient, procedure, site, positioning, and implant(s) or special equipment if applicable. Utilizing bedside ultrasound, vascularity of the left upper extremity was assessed. Vessel size was noted for appropriate catheter selection and skin was marked with gentle pressure. Patients left upper extremity was prepped and draped in the usual sterile fashion utilizing chlorhexidine. Ultrasound guidance was used to aid needle placement. A 20 g Endurance Catheter was introduced into the left cephalic vein under direct ultrasound guidance. Guide wire was easily deployed without resistance. Catheter was threaded over the guide wire without resistance and the entire apparatus was removed intact. Good venous blood return was noted in the catheter. The IV catheter was easily flushed with sterile saline flush. Sterile clave was attached to the end of the catheter and good blood return was again noted. Tourniquet was released. StatLock device and sterile dressing were applied. The patient tolerated the procedure well. Blood Loss: Minimal Complications: None Procedural Ultrasound Guidance: Procedure Date: 09/14/2019 Indication: Poor Vascular Access Attending: Dr. Too Lazcano Povider: BOB Hernandez Artery/Veins Identified: YES Access confirmed in Vein with ultrasound: YES Complications: NONE Patient tolerated procedure: WELL Coding
[2019-09-14 06:30] LABS: iSTAT Allen Test Pass; iSTAT Arterial Blood Gas HCO3 32 meg/L (19-24); iSTAT Arterial Blood Gas pCO2 46 mmHg (35-46); iSTAT Arterial Blood Gas pH 7.45 (7.35-7.45); iSTAT Arterial Blood Gas pO2 50 mmHg (80-95); iSTAT Carbon Dioxide 33 mmol/L (24-31); iSTAT FiO2 50 %; iSTAT Site L Radial
--- NOTE | 2019-09-14 06:55 | XRay Report ---
XR chest 1V portable CLINICAL HISTORY: Respiratory failure COMPARISON STUDY: September 13, 2019 FINDINGS: The heart remains enlarged. There is an endotracheal 15 mm above the pradip. There is a delfin ogastric tube which passes into the stomach. There is persistent left basilar parenchymal consolidati on. There is worsening congestive failure/fluid overload.[ IMPRESSION: 1. Persistent left lower lung zone parenchymal consolidation 2. Slight worsening congestive failure/fluid overload 3. Persistent cardiomegaly ACT 112: Negative or not required by law. Electronically signed by: Laith Ward M.D. 09/14/2019 6:54 AM
--- NOTE | 2019-09-14 07:20 | Hospitalist Progress Note ---
Date of Service September 14, 2019 Assessment & Plan (1) Hypoxemia: 64yo female with history of CHF, COPD presenting to outside facility with acute hypoxic respiratory failure with oxygen saturations in the 50's requiring BiPAP. Per outside workup, patient with markedly elevated BNP, mild vascular congestion on CXR. No evidence of PNA, PTX. No concerns for COVID-19 exposure per brother. Ddx to include acute exacerbation of CHF, COPD, PE, less likely PNA, Covid-19 Pt decompensated shortly after admission and is now intubated with mechanical ventilation decompensation felt secondary to heart failure superimposed on baseline COPD -Continue Diuresis with Lasix 60mg IV daily possible Pneumonia on CT with parenchymal infiltrates as below, COVID NEGATIVE- >ceftriaxone and azithromycin CTA 09/12/29 IMPRESSION: 1. Study is negative for pulmonary embolus. 2. Bibasilar parenchymal infiltrates. 3. Interstitial changes in the mid upper lungs bilaterally. (2) CAD (coronary artery disease): Patient with history of CAD. No reports of CP. Troponin 0.07 x2 EKG with nonspecific changes, rightward axis -Continue ASA 81mg daily -Continue Metoprolol 25mg daily (3) Seizure: Family denies recent seizure no typically on medicaiton (4) TASH and COPD overlap syndrome: maintain brhochodialators (5) CHF (congestive heart failure): Unknown specifics of EF -Diuresis as above -Echocardiogram shows normal LV function, 50-55% no discussion of diastolic function -Continue metoprolol (6) Edema of left lower extremity: LLE edema and cellulitis,, this has dramatically improved, she has some residual swelling but no erythema -Doppler no DVT but note of occlusion of left femoral and popliteal artery with collateral reconstitution -Ceftriaxone - Vancomycin, discontinued insulin sliding scale was given iv steroids x1 Ppx - Heparin TID, Protonix while on BiPAP Code - Full per discussion with family. Patient would not want fdc life support measures POC - Bill (brother) [phone] Admission and Anticipated Discharge Date Admission Date: September 12, 2019 Subjective Patient was extubated 09/13 is awake and alert tolerating some po, feels sob and has non productive cough Review of Systems Review of Systems: Mild distress and fatigue no headache, blurry or double vision no speech or swallowing issues no chest pain, pressure or palpitations still with some sob and non productive cough no abdominal pain, nausea or vomiting, diarrhea or constipation no dysuria, hematuria or frequency no focal joint pain or swelling no back pain, CVA tenderness or radicular pain no bruising, bleeding or rashes no focal signs of weakness or numbness or altered sensation no complaints or anxiety or depression. Physical Exam Physical Exam: The patient appeared stable but supported with ventilatory support Vital signs as documented. Head exam is normocephalic atraumatic no scleral icterus Neck is without JVD, thyromegaly, or carotid bruits. Trachea is midline Lungs are coarse bibasilarly Cardiac exam, Rhythm is regular.. No murmurs, rubs or gallops. Abdominal exam reveals hypoactive bowel sounds distended tympanitic Extremities left extremity is larger than right some redness Neurologic exam is not able to be assessed Skin is without bruises or rashes Results & Data Results & Data ([facility]) Vital Signs (Past 12 Hours) Vital Signs Temp Pulse Pulse Resp BP Pulse Ox 09/14/19 07:02 98.1 F 70 97/51 L 93 09/14/19 07:00 98.1 F 70 93 09/14/19 06:53 98.1 F 71 110/54 L 92 09/14/19 06:47 98.1 F 76 75/57 L 91 09/14/19 06:32 98.1 F 73 108/54 L 92 09/14/19 06:18 98.1 F 76 90 09/14/19 06:02 98.2 F 78 112/61 91 09/14/19 06:01 98.2 F 78 89 L 09/14/19 06:00 98.2 F 79 119/61 89 L 09/14/19 05:02 80 94/53 L 89 L 09/14/19 05:00 77 90 09/14/19 04:59 80 17 90 09/14/19 04:47 86 129/69 88 L 09/14/19 04:32 81 124/65 91 09/14/19 04:17 83 119/65 90 09/14/19 04:01 82 122/64 90 09/14/19 04:00 98.2 F 82 91 09/14/19 03:47 84 121/49 L 90 09/14/19 03:32 83 119/60 94 09/14/19 03:16 84 120/57 L 91 09/14/19 03:02 83 111/59 L 90 09/14/19 03:00 82 90 09/14/19 02:46 87 124/61 90 09/14/19 02:31 86 120/57 L 92 09/14/19 02:16 85 117/59 L 91 09/14/19 02:01 83 113/57 L 91 09/14/19 02:00 82 90 09/14/19 01:46 85 117/60 90 09/14/19 01:45 83 16 91 09/14/19 01:31 85 116/57 L 90 09/14/19 01:16 85 113/59 L 89 L 09/14/19 01:01 86 114/58 L 89 L 09/14/19 01:00 86 88 L 09/14/19 00:46 85 110/55 L 90 09/14/19 00:31 85 106/54 L 90 09/14/19 00:16 79 103/59 L 91 09/14/19 00:06 81 18 90 09/14/19 00:01 81 108/60 90 09/14/19 00:00 98.2 F 82 91 09/13/19 23:46 80 109/57 L 91 09/13/19 23:31 78 110/57 L 89 L 09/13/19 23:16 82 114/57 L 91 09/13/19 23:01 90 124/69 88 L 09/13/19 23:00 92 H 82 L 09/13/19 22:46 83 119/58 L 91 09/13/19 22:31 83 119/58 L 90 09/13/19 22:16 86 124/59 L 92 09/13/19 22:10 83 16 90 09/13/19 22:01 82 117/58 L 90 09/13/19 22:00 83 90 09/13/19 21:46 87 116/57 L 91 09/13/19 21:31 83 116/58 L 90 09/13/19 21:16 86 119/59 L 90 09/13/19 21:01 86 121/59 L 90 PG Care Time/CCT Total # of Minutes Spent Total Time Spent with Patient: Total time spent is greater than 50% in coordination of care (as documented) at patient's floor/unit and/or counseling patient: Coding Level of Care Code 36283 Subseq Hosp Care Lvl 3 Diagnoses Hypoxemia R09.02 CAD (coronary artery disease) I25.10 Associated angina: without angina Coronary Disease-Associated Artery/Lesion type: [place] artery [place] vs. transplanted heart: [place] heart Seizure R56.9 TASH and COPD overlap syndrome G47.33; J44.9 CHF (congestive heart failure) I50.9 Heart failure chronicity: unspecified Heart failure type: unspecified Edema of left lower extremity R60.0 (1) CAD (coronary artery disease) Associated angina: without angina Coronary Disease-Associated Artery/Lesion type: [place] artery [place] vs. transplanted heart: [place] heart Qualified Code(s): I25.10 - Atherosclerotic heart disease of [place] coronary artery without angina pectoris (2) CHF (congestive heart failure) Heart failure chronicity: unspecified Heart failure type: unspecified Qualified Code(s): I50.9 - Heart failure, unspecified
[2019-09-14] MEDS: AZITHROMYCIN 250 MG TAB PO SCH (08:11)
[2019-09-14] MEDS: METOPROLOL TARTRATE 25 MG TAB PO SCH ×2 (08:11→21:22)
[2019-09-14] MEDS: ASPIRIN 81 MG ECTAB PO SCH (08:11)
[2019-09-14] MEDS: PANTOprazole 40 MG TAB PO SCH (08:12)
[2019-09-14] MEDS: FUROSEMIDE 60 MG in SYRINGE 0 ML IV SCH (08:13)
[2019-09-14] MEDS: cefTRIAXone SODIUM 2,000 MG in DEXTROSE 5% 50 ML IV SCH (08:13)
[2019-09-14] MEDS: FORMOTEROL 20 MCG/2 ML VIAL NEB SCH ×2 (08:19→19:07)
[2019-09-14] MEDS: BUDESONIDE 0.5 MG/2 ML VIAL (PULMICORT) NEB SCH ×2 (08:19→19:07)
[2019-09-14] MEDS ORDERED: POTASSIUM CHLORIDE 20 MEQ/15 ML UDC GT STA (08:31)
[2019-09-14] MEDS ORDERED: VANCOMYCIN HCL 1,000 MG in SODIUM CHLORIDE 0.9% 250 ML IV SCH (09:00)
--- NOTE | 2019-09-14 09:03 | Critical Care Progress Note ---
Date of Service September 14, 2019 Assessment & Plan (1) Respiratory failure with hypoxia and hypercapnia: Reason Critically Ill: 64-year-old female with history of COPD, CHF with hypoxic hypercapnic respiratory failure and failed BiPAP requiring intubation with mechanical ventilation. 24-hour events: Patient had remained hemodynamically stable. Vent settings were weaned significantly. She was diuresed. Echocardiogram is currently pending. She is more awake and alert. Recommendations: Neuro -encephalopathy, suspect related to respiratory acidosis. Ammonia level slightly decreasing today. Could have some underlying nonalcoholic steatohepatitis or alcoholic cirrhosis. Would continue to follow for now. Hold lactulose. Cardiac -echo pending. BNP markedly elevated. Diuresed just over a liter in the last 24 hours. Continue Lasix. Continue metoprolol 12.5 mg twice a day. Respiratory -hypoxemic and hypercarbic respiratory failure related to combinations of fluid overload, obstructive lung disease, obesity hypo ventilation syndrome. Blood gases improved. Vent settings are favorable today. We will proceed with SBT and trial of extubation. May need to extubate to noninvasive positive pressure ventilation given history of sleep disordered breathing and obesity. Likely underlying obstructive lung disease but not overtly bronchospastic. No indication for systemic steroids. Continue nebulized bronchodilators (budesonide Perforomist and duo nebs). Continue azithromycin for acute exacerbation of COPD. GI -possible nonalcoholic steatohepatitis. Liver enzymes are okay. Hold feeding for now in hopes of extubation. If unable to extubate, may require initiation of enteric tube feeds. RENAL/LYTES -presented with elevated creatinine now down to baseline. Continue to follow. Electrolytes and acid-base status improved. Continue repletion protocols - Foleystrict I's and O's ENDO -continue glycemic protocol. Re-dose home Synthroid once able to take p.o. HEME - H&H stable, monitor routine CBCs ID -patient was started on Rocephin and azithromycin for presumed community- acquired pneumonia. Cultures are negative to date. Procalcitonin was negative. Can likely de-escalate antibiotics in the next 24 hours if cultures remain negative. Will discontinue vancomycin at this point time. LINES/IV ACCESS - Peripheral IVs, ETT, OGT DVT PROPHYLAXIS - SCDs, heparin subcu (2) Hypoxemia: (3) COPD (chronic obstructive pulmonary disease): (4) CHF (congestive heart failure): (5) TASH and COPD overlap syndrome: Admission and Anticipated Discharge Date Admission Date: September 12, 2019 Subjective Patient remains intubated and on low-dose propofol but is awake and following commands. Review of Systems Review of Systems: Unobtainable due to endotracheal tube Physical Exam Constitutional: + obese; no acute distress Neck: trachea midline, no thyromegaly Respiratory: normal respiratory effort Breath sounds diminished bilaterally without wheezing. Few basilar rales Cardiovascular: RRR, no murmur, no edema Gastrointestinal (Abdomen): normal bowel sounds, soft, nontender, no hepatosplenomegaly Musculoskeletal: Extremities: extremities normal to inspection Skin: no rashes, warm and dry Markedly abnormal toenails Neurologic: Nonfocal exam Lymphatic: no cervical lymphadenopathy Results & Data Results & Data ([facility]) Vital Signs (Past 12 Hours) Vital Signs Temp Pulse Pulse Resp BP Pulse Ox 09/14/19 08:20 79 16 97 09/14/19 07:02 36.7 C 70 97/51 L 93 09/14/19 07:00 36.7 C 70 93 09/14/19 06:53 36.7 C 71 110/54 L 92 09/14/19 06:47 36.7 C 76 75/57 L 91 09/14/19 06:32 36.7 C 73 108/54 L 92 09/14/19 06:18 36.7 C 76 90 09/14/19 06:02 36.8 C 78 112/61 91 09/14/19 06:01 36.8 C 78 89 L 09/14/19 06:00 36.8 C 79 119/61 89 L 09/14/19 05:02 80 94/53 L 89 L 09/14/19 05:00 77 90 09/14/19 04:59 80 17 90 09/14/19 04:47 86 129/69 88 L 09/14/19 04:32 81 124/65 91 09/14/19 04:17 83 119/65 90 09/14/19 04:01 82 122/64 90 09/14/19 04:00 36.8 C 82 91 09/14/19 03:47 84 121/49 L 90 09/14/19 03:32 83 119/60 94 09/14/19 03:16 84 120/57 L 91 09/14/19 03:02 83 111/59 L 90 09/14/19 03:00 82 90 09/14/19 02:46 87 124/61 90 09/14/19 02:31 86 120/57 L 92 09/14/19 02:16 85 117/59 L 91 09/14/19 02:01 83 113/57 L 91 09/14/19 02:00 82 90 09/14/19 01:46 85 117/60 90 09/14/19 01:45 83 16 91 09/14/19 01:31 85 116/57 L 90 09/14/19 01:16 85 113/59 L 89 L 09/14/19 01:01 86 114/58 L 89 L 09/14/19 01:00 86 88 L 09/14/19 00:46 85 110/55 L 90 09/14/19 00:31 85 106/54 L 90 09/14/19 00:16 79 103/59 L 91 09/14/19 00:06 81 18 90 09/14/19 00:01 81 108/60 90 09/14/19 00:00 36.8 C 82 91 09/13/19 23:46 80 109/57 L 91 09/13/19 23:31 78 110/57 L 89 L 09/13/19 23:16 82 114/57 L 91 09/13/19 23:01 90 124/69 88 L 09/13/19 23:00 92 H 82 L 09/13/19 22:46 83 119/58 L 91 09/13/19 22:31 83 119/58 L 90 09/13/19 22:16 86 124/59 L 92 09/13/19 22:10 83 16 90 09/13/19 22:01 82 117/58 L 90 09/13/19 22:00 83 90 09/13/19 21:46 87 116/57 L 91 09/13/19 21:31 83 116/58 L 90 09/13/19 21:16 86 119/59 L 90 09/13/19 21:01 86 121/59 L 90 Laboratory Results 09/14/19 04:12 09/14/19 04:12 Diagnostic Findings Chest x-ray today was independently reviewed. Endotracheal tube and orogastric tubes are in good position. There is some hazy opacity at the left lung base with possible small effusion. Vascular congestion again noted. Coding Level of Care Code 48554 Subseq Hosp Care Lvl 3 Diagnoses Respiratory failure with hypoxia and hypercapnia J96.91; J96.92 Hypoxemia R09.02 COPD (chronic obstructive pulmonary disease) J44.9 CHF (congestive heart failure) I50.9 Heart failure type: unspecified Heart failure chronicity: unspecified TASH and COPD overlap syndrome G47.33; J44.9 (1) CHF (congestive heart failure) Heart failure type: unspecified Heart failure chronicity: unspecified Qualified Code(s): I50.9 - Heart failure, unspecified
--- NOTE | 2019-09-14 12:49 | XCELERA ---
[id number] \\[id number]_[id number]
[2019-09-14] MEDS ORDERED: Nursing to Pharmacy Communication SCH (16:15)
[2019-09-14] MEDS ORDERED: INSULIN ASPART 100 UNITS/ML 3 ML PEN SC SCH ×2 (16:30→21:00)
[2019-09-15] MEDS: ALBUT/IPRATROP 3MG/0.5MG NEB 3 ML VIAL NEB SCH ×4 (01:20→19:26)
[2019-09-15 04:17] LABS: Basophils # (auto) 0.01 K/uL (0-0.2); Basophils % (auto) 0.1 %; Hematocrit (blood only) 44.4 % (37-47); Hemoglobin 13.2 g/dL (12.0-16.0); Immature Granulocytes # (auto) 0.03 K/uL (0.00-0.02); Immature Granulocytes % (auto) 0.3 %; Lymphocytes # (auto) 1.74 K/uL (1.2-3.4); Lymphocytes % (auto) 17.6 %; Mean Corpuscular Hemoglobin 25.6 pg (25-34); Mean Corpuscular Hgb Conc 29.7 g/dL (32-36); Mean Platelet Volume 9.3 fL (7.4-10.4); Monocytes # (auto) 0.88 K/uL (0.11-0.59); Monocytes % (auto) 8.9 %; Neutrophils % (auto) 70.1 %; Platelet Count 366 K/uL (130-400); RDW Coefficient of Variation 17.9 % (11.5-14.5); RDW Standard Deviation 56.3 fL (36.4-46.3); Red Blood Count 5.16 M/uL (4.2-5.4); White Blood Count 9.86 K/uL (4.8-10.8)
[2019-09-15 04:35] LABS: Albumin Level 2.7 gm/dl (3.4-5.0); BUN Creatinine Ratio 25.5 (10-20); Calcium 8.6 mg/dl (8.5-10.1); Creatinine Clr Calc Pharmacy 49.8 ml/min; Est GFR (African American) 55.5; Est GFR (Non-African American) 47.9; Magnesium 2.1 mg/dl (1.8-2.4); Potassium 3.9 mmol/L (3.5-5.1)
[2019-09-15 04:38] LABS: Albumin Globulin Ratio 0.6 (0.9-2); Bilirubin,Total 0.5 mg/dl (0.2-1); Globulin 4.3 gm/dl (2.5-4.0); Phosphorus 3.2 mg/dl (2.5-4.9)
[2019-09-15] MEDS: LEVOTHYROXINE SODIUM 75 MCG TABLET PO SCH (05:42)
[2019-09-15] MEDS: HEPARIN SOD 5,000 UNIT/0.5 ML VIAL SQ SCH ×3 (05:42→21:08)
[2019-09-15] MEDS ORDERED: SODIUM CHLORIDE 0.9% 250 ML IV PRN (06:11)
[2019-09-15] MEDS: FORMOTEROL 20 MCG/2 ML VIAL NEB SCH ×2 (06:59→19:26)
[2019-09-15] MEDS: BUDESONIDE 0.5 MG/2 ML VIAL (PULMICORT) NEB SCH ×2 (06:59→19:26)
--- NOTE | 2019-09-15 07:11 | Hospitalist Progress Note ---
Date of Service September 15, 2019 Assessment & Plan (1) Hypoxemia: 64yo female with history of CHF, COPD presenting to outside facility with acute hypoxic respiratory failure with oxygen saturations in the 50's requiring BiPAP. Per outside workup, patient with markedly elevated BNP, mild vascular congestion on CXR. No evidence of PNA, PTX. No concerns for COVID-19 exposure per brother. Ddx to include acute exacerbation of CHF, COPD, PE, less likely PNA, Covid-19 Pt decompensated shortly after admission and was intubated now extubated decompensation felt secondary to heart failure superimposed on baseline COPD -Continue Diuresis with Lasix 60mg IV daily possible Pneumonia on CT with parenchymal infiltrates as below, COVID NEGATIVE- >initially ceftriaxone but de escalated to po doxycycline only CTA 09/12/29 IMPRESSION: 1. Study is negative for pulmonary embolus. 2. Bibasilar parenchymal infiltrates. 3. Interstitial changes in the mid upper lungs bilaterally. (2) CAD (coronary artery disease): Patient with history of CAD. No reports of CP. Troponin 0.07 x2 EKG with nonspecific changes, rightward axis -Continue ASA 81mg daily -Continue Metoprolol 25mg daily ECHO with preserved EF so if HF would be HFpEF, there is notation of small pericardial effusion without tamponade physiology (3) Seizure: Family denies recent seizure no typically on medicaiton (4) TASH and COPD overlap syndrome: maintain brhochodialators (5) CHF (congestive heart failure): HFpEF -Diuresis as above -Echocardiogram shows normal LV function, 50-55% no discussion of diastolic function -Continue metoprolol (6) Edema of left lower extremity: LLE edema and cellulitis,, this has dramatically improved, she has some residual swelling but no erythema -Doppler no DVT but note of occlusion of left femoral and popliteal artery with collateral reconstitution -Ceftriaxone Vancomycin, discontinued will transition to po doxycycline for coverage of skin and also copd related lung issues insulin sliding scale was given iv steroids x1 Ppx - Heparin TID, Protonix while on BiPAP Code - Full per discussion with family. Patient would not want long winder tender life support measures POC - Darek (brother) [phone] Admission and Anticipated Discharge Date Admission Date: September 12, 2019 Subjective Patient was extubated 09/13, patient continues to have a loose sounding cough its with less productivity over the last few days she is weak and tired Review of Systems Review of Systems: Mild distress and fatigue no headache, blurry or double vision no speech or swallowing issues no chest pain, pressure or palpitations still with some sob and non productive cough no abdominal pain, nausea or vomiting, diarrhea or constipation no dysuria, hematuria or frequency no focal joint pain or bilateral lower extremity swelling left greater than right no back pain, CVA tenderness or radicular pain Redness to bilateral lower legs left greater than right no focal signs of weakness or numbness or altered sensation no complaints or anxiety or depression. Physical Exam Physical Exam: The patient appeared stable but supported with ventilatory support Vital signs as documented. Head exam is normocephalic atraumatic no scleral icterus Neck is without JVD, thyromegaly, or carotid bruits. Trachea is midline Lungs are coarse bibasilarly with expiratory wheezes also Cardiac exam, Rhythm is regular.. No murmurs, rubs or gallops. Abdominal exam reveals hypoactive bowel sounds distended tympanitic Extremities left extremity is larger than right some redness Neurologic exam is not able to be assessed Skin is without bruises or rashes Results & Data Results & Data ([facility]) Vital Signs (Past 12 Hours) Vital Signs Temp Pulse Pulse Resp BP Pulse Ox 09/15/19 07:04 74 20 99 09/15/19 06:59 74 20 99 09/15/19 06:18 82 138/64 97 09/15/19 06:03 73 116/60 97 09/15/19 06:00 71 97 09/15/19 05:49 78 130/70 90 09/15/19 05:33 76 113/64 92 09/15/19 05:18 72 112/57 L 93 09/15/19 05:03 75 111/55 L 91 09/15/19 05:00 76 91 09/15/19 04:49 95 H 143/75 H 90 09/15/19 04:33 80 137/71 92 09/15/19 04:18 80 135/75 93 09/15/19 04:10 82 92 09/15/19 04:03 80 127/69 94 09/15/19 04:00 97.5 F L 79 94 09/15/19 03:50 79 95 09/15/19 03:48 80 124/73 90 09/15/19 03:45 72 15 93 09/15/19 03:40 73 92 09/15/19 03:33 69 109/61 92 09/15/19 03:30 71 91 09/15/19 03:20 70 91 09/15/19 03:18 71 98/56 L 91 09/15/19 03:10 72 92 09/15/19 03:03 72 114/62 93 09/15/19 03:00 71 94 09/15/19 02:50 73 95 09/15/19 02:48 73 113/63 95 09/15/19 02:40 74 96 09/15/19 02:33 72 118/63 96 09/15/19 02:30 76 97 09/15/19 02:20 81 93 09/15/19 02:18 79 112/64 95 09/15/19 02:10 70 96 09/15/19 02:03 70 102/57 L 95 09/15/19 02:00 72 95 09/15/19 01:50 72 95 09/15/19 01:48 69 111/59 L 95 09/15/19 01:40 69 94 09/15/19 01:33 71 102/57 L 95 09/15/19 01:30 70 96 09/15/19 01:27 87 18 95 09/15/19 01:26 87 18 95 09/15/19 01:20 71 95 09/15/19 01:18 73 103/60 95 09/15/19 01:10 70 95 09/15/19 01:03 69 116/63 96 09/15/19 01:00 70 96 09/15/19 00:50 71 97 09/15/19 00:48 73 111/62 97 09/15/19 00:40 74 98 09/15/19 00:33 76 113/70 98 09/15/19 00:30 79 97 09/15/19 00:20 80 98 08 00:18 81 113/61 97 09/15/19 00:10 82 92 0803 00:03 73 99/57 L 94 09/15/19 00:00 97.9 F 73 93 09/14/19 23:50 74 94 09/14/19 23:48 75 99/58 L 95 09/14/19 23:40 77 93 09/14/19 23:33 80 107/59 L 93 08/02/20 23:30 81 93 09/14/19 23:24 77 18 94 09/14/19 23:20 83 94 09/14/19 23:18 84 118/69 93 09/14/19 23:10 88 90 09/14/19 23:03 92 H 126/73 89 L 09/14/19 23:00 98 H 84 L 09/14/19 22:50 102 H 85 L 09/14/19 22:48 87 109/63 91 09/14/19 22:40 85 92 09/14/19 22:33 84 108/52 L 91 09/14/19 22:30 85 92 09/14/19 22:20 88 91 09/14/19 22:18 90 127/67 92 09/14/19 22:10 92 H 92 09/14/19 22:03 82 107/57 L 92 09/14/19 22:00 84 91 09/14/19 21:50 88 91 09/14/19 21:48 82 106/60 91 09/14/19 21:40 81 89 L 09/14/19 21:33 83 104/52 L 90 09/14/19 21:30 81 90 09/14/19 21:20 81 90 09/14/19 21:18 81 116/61 90 09/14/19 21:10 83 89 L 09/14/19 21:03 83 106/51 L 92 09/14/19 21:00 85 91 09/14/19 20:48 85 100/51 L 94 09/14/19 20:33 86 96/64 L 94 09/14/19 20:18 86 117/63 94 09/14/19 20:03 85 111/56 L 92 09/14/19 20:00 97.9 F 86 91 09/14/19 19:15 87 20 95 PG Care Time/CCT Total # of Minutes Spent Total Time Spent with Patient: Total time spent is greater than 50% in coordination of care (as documented) at patient's floor/unit and/or counseling patient: Coding Level of Care Code 82646 Subseq Hosp Care Lvl 3 Diagnoses Hypoxemia R09.02 CAD (coronary artery disease) I25.10 Associated angina: without angina Coronary Disease-Associated Artery/Lesion type: [place] artery [place] vs. transplanted heart: [place] heart Seizure R56.9 TASH and COPD overlap syndrome G47.33; J44.9 CHF (congestive heart failure) I50.9 Heart failure chronicity: unspecified Heart failure type: unspecified Edema of left lower extremity R60.0 (1) CAD (coronary artery disease) Associated angina: without angina Coronary Disease-Associated Artery/Lesion type: [place] artery [place] vs. transplanted heart: [place] heart Qualified Code(s): I25.10 - Atherosclerotic heart disease of [place] coronary artery without angina pectoris (2) CHF (congestive heart failure) Heart failure chronicity: unspecified Heart failure type: unspecified Qualified Code(s): I50.9 - Heart failure, unspecified
--- NOTE | 2019-09-15 08:03 | Critical Care Progress Note ---
Date of Service September 15, 2019 Assessment & Plan (1) Respiratory failure with hypoxia and hypercapnia: Reason Critically Ill: 64 yo F PMHx significant for COPD, CHF, TASH, CAD, alcohol use disorder in remission, prediabetes, hypothyroidism who presented as direct admit from [facility] for AMS and hypoxia and who was admitted for acute hypoxemic respiratory failure. Neuro - CAM ICU: negative Sedation: none Analgesia: none, no complaints of pain Hypercapnic encephalopathy: - On arrival patient with AMS. - Initial CO2 on ABG 09/12 of 95 -> patient was intubated and CO2 downtrended to 46 today. Patient successfully extubated overnight. - Ammonia level continued to downtrend from 46.8 -> 33.0. - BUN mildly elevated but continues to downtrend. - Suspect encephalopathy was secondary to severe hypercapnea; patient is mentating well today. - Patient also has a history of prior alcohol abuse, and so may have some element of cirrhosis 2/2 alcohol. - Patient may require home O2 on discharge, and given several witnessed apneic episodes while asleep likely requires CPAP/BiPAP for sleeping. Cardiac - HFpEF: - On [facility] XRay report patient with findings suggestive of congestive heart failure. Received 60mg Lasix IV at outside hospital. - Patient with a history of CHF; this admission Echo showed EF 50-55%, with concentric borderline LVH and RVH, mild TR, small pericardial effusion without tamponade. - At home is on bumetanide 1mg PO BID. - While admitted has been receiving Lasix 60mg IV daily. - Net negative ~6L since admission. - Received 60mg IV today, will hold and defer to primary team regarding further diuresis. Hx CAD: - Continue metoprolol tartrate 25mg PO BID. - Continue baby aspirin. Respiratory - Acute Hypoxemic/Hypercarbic Respiratory Failure: - Likely multifactorial due to fluid overload, COPD, obesity hypoventilation syndrome. - CXR with findings suggestive of congestive heart failure and superimposed infiltrate at the left base. - On arrival CTA with bibasilar parenchymal infiltrates, and interstitial changes in the mid upper lungs bilaterally. - With improvement in ABG with mechanical ventilation, and patient has been successfully extubated and is now on 4LNC saturating well and resting comfortably. - With continued improvement in respiratory status with diuresis, nebs, night BiPAP/CPAP. - Continue budesonide, albuterol nebs. - Continue azithromycin x5 days for suspected COPD exacerbation. - BiPAP qHS for TASH. ? Pneumonia: - Was initially on vanc/ceftriaxone for suspected pneumonia with positive MRSA nares, however procal normal and BCx x2 negative and vancomycin discontinued. - Continue Rocephin for a total of 3 days for UTI as below then d/c. - Additional antibiotic management deferred to primary team. GI - - Heart healthy, DM2 diet. - Continue PPI. RENAL/LYTES - - No significant electrolyte derangement. - Daily BMP. - Replace lytes as needed. - ? UTI: - Patient with altered mental status on arrival but without urinary complaints. - UCx collected this admission with E. coli >100,000 CFU, sensitive to Rocephin. - Complete 3 days Rocephin while admitted for suspected uncomplicated UTI. - 24 hour I/Os net negative 1600mL; receiving Lasix 60mg IV daily. ENDO - Prediabetes: - Hgb A1c this admission 6.2; patient on metformin 500mg PO BID in outpatient setting. - Continue ICU glycemic protocol until transfer out of unit. Hypothyroidism: - This admission TSH 7.030, T4 normal; patient on levothyroxine 75mcg daily in outpatient setting. - Continue home levothyroxine. - Recommend repeat TSH 6 weeks to evaluate for appropriate levothyroxine dosing; defer to primary care provider. HEME - Stable H&H. ID - - WBC downtrending 12.79 -> 9.86 on Rocephin/azithromycin for suspected pneumonia/COPD exacerbation. - Was initially also on vancomycin for suspected pneumonia due to positive MRSA nares, however procal normal and BCx x2 negative and vancomycin discontinued. - Continue Rocephin for a total of 3 days for UTI as above. INTEGUMENTARY - LLE superficial VTE: - On arrival with complaints of bilateral LE swelling, and on physical exam with L>R limb swelling. - US LLE: without evidence of DVT. Occlusion of the left femoral and popliteal artery with collateral reconstitution at the distal popliteal artery level. - Today without tenderness to palpation, but with continued erythema of LLE. - Encourage ambulation when able, NSAIDs/warm compresses for pain. - Will require follow up daily while admitted, and in 7-10 days to evaluate for progression. Follow up sooner if symptoms worsen. LINES/IV ACCESS - PIVs intact. DVT PROPHYLAXIS - Heparin 5000u SQ q8h Patient is stable from ICU perspective for downgrade today. Will follow until transferred out of unit, and then sign off. Thank you for allowing us to be part of this patient's care. Please refer to Dr. Salmeron's documentation for any further recommendations. (2) Edema of left lower extremity: (3) TASH and COPD overlap syndrome: (4) COPD (chronic obstructive pulmonary disease): (5) CHF (congestive heart failure): (6) CAD (coronary artery disease): (7) Alcohol use: (8) VTE (venous thromboembolism): (9) Respiratory acidosis: (10) Encephalopathy: Admission and Anticipated Discharge Date Admission Date: September 12, 2019 Supervising Physician Co-Signing Physician Notes Dr. Calvo was resident physician during care of patient. I separately evaluated patient for vee portions of the history and the exam. I was present during the critical portion of medical decision making, and I discussed the case with the resident. I generally agree with the findings and plan. Patient stable for downgrade out of ICU. Subjective Patient was extubated yesterday afternoon and transitioned to BiPAP. Since early this AM has been on 4LNC with good oxygen saturation without complaints of SOB or wheezing. Several short apneic events with saturations of mid-80s% that rapidly resolved with awakening. Denies subjective fevers or chills, chest pain/palpitations, abdominal pain, nausea or vomiting. During our interview asked me "when do I get to go home?" Review of Systems Review of Systems: All systems reviewed & are unremarkable except as noted in Subjective Constitutional: no fever and no chills Respiratory: no cough and no dyspnea (on 4LNC) Physical Exam Constitutional: well developed and + obese Eyes: PERRL, conjunctivae normal, anicteric sclerae ENMT: external ear and nose normal, oropharynx normal Neck: normal visual inspection Respiratory: Auscultation: + crackles (bilateral bases) and + wheezes (inspiratory, expiratory) diminished breath sounds bilaterally saturating to 96% on 4LNC breathing comfortably in room Cardiovascular: Rate/Rhythm: regular rate and regular rhythm Heart Sounds: no murmur Extremities: + edema (1+ bilateral LE to level of ankle) weak DP and PT pulses bilaterally radial pulses symmetric bilaterally Gastrointestinal (Abdomen): normal bowel sounds, soft, nontender, no hepatosplenomegaly Musculoskeletal: no cyanosis or clubbing, extremities motor strength 5/5 Skin: LLE with erythema and warmth from the ankle to the mid-hightower RLE without erythema or warmth No tenderness to palpation Results & Data Results & Data ([facility]) Vital Signs (Past 12 Hours) Vital Signs Temp Pulse Pulse Resp BP Pulse Ox 09/15/19 07:04 74 20 99 09/15/19 06:59 74 20 99 09/15/19 06:18 82 138/64 97 09/15/19 06:03 73 116/60 97 09/15/19 06:00 71 97 09/15/19 05:49 78 130/70 90 09/15/19 05:33 76 113/64 92 09/15/19 05:18 72 112/57 L 93 09/15/19 05:03 75 111/55 L 91 09/15/19 05:00 76 91 09/15/19 04:49 95 H 143/75 H 90 09/15/19 04:33 80 137/71 92 09/15/19 04:18 80 135/75 93 09/15/19 04:10 82 92 09/15/19 04:03 80 127/69 94 09/15/19 04:00 36.4 C L 79 94 09/15/19 03:50 79 95 09/15/19 03:48 80 124/73 90 09/15/19 03:45 72 15 93 09/15/19 03:40 73 92 09/15/19 03:33 69 109/61 92 09/15/19 03:30 71 91 09/15/19 03:20 70 91 09/15/19 03:18 71 98/56 L 91 09/15/19 03:10 72 92 09/15/19 03:03 72 114/62 93 09/15/19 03:00 71 94 09/15/19 02:50 73 95 09/15/19 02:48 73 113/63 95 09/15/19 02:40 74 96 09/15/19 02:33 72 118/63 96 09/15/19 02:30 76 97 09/15/19 02:20 81 93 09/15/19 02:18 79 112/64 95 09/15/19 02:10 70 96 09/15/19 02:03 70 102/57 L 95 09/15/19 02:00 72 95 09/15/19 01:50 72 95 09/15/19 01:48 69 111/59 L 95 09/15/19 01:40 69 94 09/15/19 01:33 71 102/57 L 95 09/15/19 01:30 70 96 09/15/19 01:27 87 18 95 09/15/19 01:26 87 18 95 09/15/19 01:20 71 95 09/15/19 01:18 73 103/60 95 09/15/19 01:10 70 95 09/15/19 01:03 69 116/63 96 09/15/19 01:00 70 96 09/15/19 00:50 71 97 09/15/19 00:48 73 111/62 97 09/15/19 00:40 74 98 09/15/19 00:33 76 113/70 98 09/15/19 00:30 79 97 09/15/19 00:20 80 98 09/15/19 00:18 81 113/61 97 09/15/19 00:10 82 92 09/15/19 00:03 73 99/57 L 94 09/15/19 00:00 36.6 C 73 93 09/14/19 23:50 74 94 09/14/19 23:48 75 99/58 L 95 09/14/19 23:40 77 93 09/14/19 23:33 80 107/59 L 93 09/14/19 23:30 81 93 09/14/19 23:24 77 18 94 09/14/19 23:20 83 94 09/14/19 23:18 84 118/69 93 09/14/19 23:10 88 90 09/14/19 23:03 92 H 126/73 89 L 09/14/19 23:00 98 H 84 L 09/14/19 22:50 102 H 85 L 09/14/19 22:48 87 109/63 91 09/14/19 22:40 85 92 09/14/19 22:33 84 108/52 L 91 09/14/19 22:30 85 92 09/14/19 22:20 88 91 09/14/19 22:18 90 127/67 92 09/14/19 22:10 92 H 92 09/14/19 22:03 82 107/57 L 92 09/14/19 22:00 84 91 09/14/19 21:50 88 91 09/14/19 21:48 82 106/60 91 09/14/19 21:40 81 89 L 09/14/19 21:33 83 104/52 L 90 09/14/19 21:30 81 90 09/14/19 21:20 81 90 09/14/19 21:18 81 116/61 90 09/14/19 21:10 83 89 L 09/14/19 21:03 83 106/51 L 92 09/14/19 21:00 85 91 09/14/19 20:48 85 100/51 L 94 09/14/19 20:33 86 96/64 L 94 09/14/19 20:18 86 117/63 94 09/14/19 20:03 85 111/56 L 92 Resident Activity Tracking Resident Involvement: Resident Care Provided Care Provided: Adult Hospital Medicine (1) CAD (coronary artery disease) Associated angina: without angina Coronary Disease-Associated Artery/Lesion type: [place] artery [place] vs. transplanted heart: [place] heart Qualified Code(s): I25.10 - Atherosclerotic heart disease of [place] coronary artery without angina pectoris (2) CHF (congestive heart failure) Heart failure chronicity: unspecified Heart failure type: unspecified Qualified Code(s): I50.9 - Heart failure, unspecified (3) Respiratory failure with hypoxia and hypercapnia Chronicity: acute Qualified Code(s): J96.01 - Acute respiratory failure with hypoxia; J96.02 - Acute respiratory failure with hypercapnia
[2019-09-15] MEDS ORDERED: VANCOMYCIN TROUGH ONE ×2 (08:30→17:30)
[2019-09-15] MEDS: PANTOprazole 40 MG TAB PO SCH (08:37)
[2019-09-15] MEDS: METOPROLOL TARTRATE 25 MG TAB PO SCH ×2 (08:37→21:08)
[2019-09-15] MEDS: ASPIRIN 81 MG ECTAB PO SCH (08:37)
[2019-09-15] MEDS: FUROSEMIDE 60 MG in SYRINGE 0 ML IV SCH (08:37)
[2019-09-15] MEDS: cefTRIAXone SODIUM 2,000 MG in DEXTROSE 5% 50 ML IV SCH ×2 (09:21→10:19)
[2019-09-15] MEDS ORDERED: CHLOROTHIAZIDE SODIUM 500 MG in DEXTROSE 5% 50 ML IV STA (10:06)
[2019-09-15] MEDS: AZITHROMYCIN 250 MG TAB PO SCH (10:18)
[2019-09-15] MEDS: DOXYCYCLINE HYCLATE 100 MG CAP PO SCH (21:08)
[2019-09-16] MEDS: ALBUT/IPRATROP 3MG/0.5MG NEB 3 ML VIAL NEB SCH ×4 (00:24→19:31)
[2019-09-16] MEDS: LEVOTHYROXINE SODIUM 75 MCG TABLET PO SCH (05:49)
[2019-09-16] MEDS: HEPARIN SOD 5,000 UNIT/0.5 ML VIAL SQ SCH ×3 (05:49→21:27)
[2019-09-16] MEDS: FORMOTEROL 20 MCG/2 ML VIAL NEB SCH ×2 (06:51→19:30)
[2019-09-16] MEDS: BUDESONIDE 0.5 MG/2 ML VIAL (PULMICORT) NEB SCH ×2 (06:51→19:30)
[2019-09-16] MEDS: PANTOprazole 40 MG TAB PO SCH (08:19)
[2019-09-16] MEDS: ASPIRIN 81 MG ECTAB PO SCH (08:20)
[2019-09-16] MEDS: DOXYCYCLINE HYCLATE 100 MG CAP PO SCH ×2 (08:20→21:26)
[2019-09-16] MEDS: METOPROLOL TARTRATE 25 MG TAB PO SCH ×2 (08:20→21:26)
[2019-09-16 08:39] LABS: BUN Creatinine Ratio 25.4 (10-20); Calcium 9.3 mg/dl (8.5-10.1); Est GFR (African American) 54.9; Est GFR (Non-African American) 47.4; Magnesium 2.1 mg/dl (1.8-2.4); Phosphorus 2.9 mg/dl (2.5-4.9); Potassium 3.8 mmol/L (3.5-5.1)
--- NOTE | 2019-09-16 11:09 | Billing Data ---
Date of Service September 15, 2019 Coding Level of Care Code 97501 Subseq Hosp Care Lvl 2
[2019-09-16] MEDS ORDERED: FUROSEMIDE 40 MG in SYRINGE 0 ML IV ONE (13:15)
[2019-09-16] MEDS: POTASSIUM CHLORIDE 20 MEQ TABCR PO SCH ×2 (13:47→21:25)
--- NOTE | 2019-09-16 22:52 | Hospitalist Progress Note ---
Date of Service September 16, 2019 Assessment & Plan (1) Hypoxemia: 64yo female with history of CHF, COPD presenting to outside facility with acute hypoxic respiratory failure with oxygen saturations in the 50's requiring BiPAP. Per outside workup, patient with markedly elevated BNP, mild vascular congestion on CXR. No evidence of PNA, PTX. No concerns for COVID-19 exposure per brother. Ddx to include acute exacerbation of CHF, COPD, PE, less likely PNA, Covid-19 Pt decompensated shortly after admission and was intubated now extubated decompensation felt secondary to heart failure superimposed on baseline COPD -Continue Diuresis with Lasix. In ICU received 60 mg daily, today will receive [address] on standing order. will need to monitor BMP. will obtain overnight pulse ox and ABG in AM. possible Pneumonia on CT with parenchymal infiltrates as below, COVID NEGATIVE- >initially ceftriaxone but de escalated to po doxycycline only CTA 09/12/29 IMPRESSION: 1. Study is negative for pulmonary embolus. 2. Bibasilar parenchymal infiltrates. 3. Interstitial changes in the mid upper lungs bilaterally. (2) CAD (coronary artery disease): Patient with history of CAD. No reports of CP. Troponin 0.07 x2 EKG with nonspecific changes, rightward axis -Continue ASA 81mg daily -Continue Metoprolol 25mg daily ECHO with preserved EF so if HF would be HFpEF, there is notation of small pericardial effusion without tamponade physiology (3) Seizure: Family denies recent seizure no typically on medicaiton (4) TASH and COPD overlap syndrome: maintain brhochodialators (5) CHF (congestive heart failure): HFpEF -Diuresis as above -Echocardiogram shows normal LV function, 50-55% no discussion of diastolic function -Continue metoprolol (6) Edema of left lower extremity: LLE edema and cellulitis,, this has dramatically improved, she has some residual swelling but no erythema -Doppler no DVT but note of occlusion of left femoral and popliteal artery with collateral reconstitution -Ceftriaxone Vancomycin, discontinued will transition to po doxycycline for coverage of skin and also copd related lung issues insulin sliding scale was given iv steroids x1 Ppx - Heparin TID, Protonix while on BiPAP Code - Full per discussion with family. Patient would not want intermodal customer service life support measures POC - Darek (brother) [phone] Admission and Anticipated Discharge Date Admission Date: September 12, 2019 Subjective Patient is a poor historian. Review of Systems Review of Systems: Mild distress and fatigue no headache, blurry or double vision no speech or swallowing issues no chest pain, pressure or palpitations still with some sob and non productive cough no abdominal pain, nausea or vomiting, diarrhea or constipation no dysuria, hematuria or frequency no focal joint pain or bilateral lower extremity swelling left greater than right no back pain, CVA tenderness or radicular pain no focal signs of weakness or numbness or altered sensation no complaints or anxiety or depression. Physical Exam Physical Exam: The patient appeared stable Vital signs as documented. Head exam is normocephalic atraumatic no scleral icterus Neck is without JVD, thyromegaly, or carotid bruits. Trachea is midline Lungs are clearer, no wheezing. Cardiac exam, Rhythm is regular.. No murmurs, rubs or gallops. Abdominal exam reveals hypoactive bowel sounds Extremities left extremity is larger than right some redness Neurologic exam is not able to be assessed Skin is without bruises or rashes Results & Data Results & Data ([facility]) Vital Signs (Past 12 Hours) Vital Signs Temp Pulse Pulse Pulse Resp BP BP 09/16/19 21:16 80 09/16/19 19:34 84 18 09/16/19 19:01 36.6 C 84 20 128/78 09/16/19 16:47 36.5 C 81 20 144/63 H 09/16/19 16:00 80 09/16/19 14:48 09/16/19 13:15 85 18 09/16/19 11:06 36.8 C 83 18 117/68 Pulse Ox Pulse Ox 09/16/19 21:16 92 09/16/19 19:34 92 09/16/19 19:01 91 09/16/19 16:47 92 09/16/19 16:00 09/16/19 14:48 95 09/16/19 13:15 89 L 09/16/19 11:06 90 PG Care Time/CCT Total # of Minutes Spent Total Time Spent with Patient: Total time spent is greater than 50% in coordination of care (as documented) at patient's floor/unit and/or counseling patient: Coding Level of Care Code 91777 Subseq Hosp Care Lvl 3 Diagnoses Hypoxemia R09.02 CAD (coronary artery disease) I25.10 Associated angina: without angina Coronary Disease-Associated Artery/Lesion type: [place] artery [place] vs. transplanted heart: [place] heart Seizure R56.9 TASH and COPD overlap syndrome G47.33; J44.9 CHF (congestive heart failure) I50.9 Heart failure chronicity: unspecified Heart failure type: unspecified Edema of left lower extremity R60.0 Time Spent (min) 35 (1) CAD (coronary artery disease) Associated angina: without angina Coronary Disease-Associated Artery/Lesion type: [place] artery [place] vs. transplanted heart: [place] heart Qualified Code(s): I25.10 - Atherosclerotic heart disease of [place] coronary artery without angina pectoris (2) CHF (congestive heart failure) Heart failure chronicity: unspecified Heart failure type: unspecified Qualified Code(s): I50.9 - Heart failure, unspecified
[2019-09-17] MEDS: ALBUT/IPRATROP 3MG/0.5MG NEB 3 ML VIAL NEB SCH ×4 (00:30→19:05)
[2019-09-17] MEDS: HEPARIN SOD 5,000 UNIT/0.5 ML VIAL SQ SCH ×3 (05:52→21:51)
[2019-09-17] MEDS: LEVOTHYROXINE SODIUM 75 MCG TABLET PO SCH (05:57)
[2019-09-17 07:14] LABS: Base Excess ABG 7.2 mEq/L (-9-1.8); HCO3 ABG 35 mmol/L (19-24); Oxygen Saturation ABG 94.7 % (90-95); PCO2 ABG 61 mmHg (35-46); PO2 ABG 76 mmHg (80-95); pH ABG 7.37 (7.35-7.45)
[2019-09-17 07:24] LABS: Hematocrit (blood only) 44.2 % (37-47); Hemoglobin 13.6 g/dL (12.0-16.0); Mean Corpuscular Hgb Conc 30.8 g/dL (32-36); Mean Corpuscular Volume 84.5 fL (80-100); Mean Platelet Volume 9.3 fL (7.4-10.4); Platelet Count 357 K/uL (130-400); RDW Coefficient of Variation 17.5 % (11.5-14.5); RDW Standard Deviation 53.8 fL (36.4-46.3); Red Blood Count 5.23 M/uL (4.2-5.4)
[2019-09-17 07:34] LABS: BUN Creatinine Ratio 28.6 (10-20); Calcium 9.1 mg/dl (8.5-10.1); Creatinine Clr Calc Pharmacy 59.6 ml/min; Est GFR (African American) 67.7; Est GFR (Non-African American) 58.4; Magnesium 2.2 mg/dl (1.8-2.4); Potassium 4.3 mmol/L (3.5-5.1)
[2019-09-17 07:39] LABS: Phosphorus 2.6 mg/dl (2.5-4.9)
[2019-09-17] MEDS: BUDESONIDE 0.5 MG/2 ML VIAL (PULMICORT) NEB SCH ×2 (07:41→19:06)
[2019-09-17] MEDS: FORMOTEROL 20 MCG/2 ML VIAL NEB SCH ×2 (07:41→19:06)
[2019-09-17 07:52] LABS: Allen Test Pos (Pos)
[2019-09-17] MEDS: PANTOprazole 40 MG TAB PO SCH (09:35)
[2019-09-17] MEDS: ASPIRIN 81 MG ECTAB PO SCH (09:36)
[2019-09-17] MEDS: POTASSIUM CHLORIDE 20 MEQ TABCR PO SCH ×3 (09:36→21:51)
[2019-09-17] MEDS: METOPROLOL TARTRATE 25 MG TAB PO SCH ×2 (09:36→21:51)
[2019-09-17] MEDS: DOXYCYCLINE HYCLATE 100 MG CAP PO SCH ×2 (09:37→21:51)
--- NOTE | 2019-09-17 10:23 | XRay Report ---
XR chest 2V PA/lateral CLINICAL HISTORY: CHF dyspnea COMPARISON STUDY: 09/14/2019 FINDINGS: Interval extubation. Interval removal of the nasogastric tube. Improved aeration left lung base. Persistent prominence of the pulmonary vasculature suggesting compo nents of congestive failure. IMPRESSION: 1. Interval extubation and nasogastric tube removal. 2. Improved aeration left base. 3. Components of congestive heart failure somewhat increased from the prior exam. ACT 112: Negative or not required by law. The above report was generated using voice recognition software. It may contain grammatical, syntax or spelling errors. Electronically signed by: Alvaro Mauro M.D. 09/17/2019 10:22 AM
--- NOTE | 2019-09-17 14:18 | Hospitalist Progress Note ---
Date of Service September 17, 2019 Assessment & Plan (1) Hypoxemia: 64yo female with history of CHF, COPD presenting to outside facility with acute hypoxic respiratory failure with oxygen saturations in the 50's requiring BiPAP. Per outside workup, patient with markedly elevated BNP, mild vascular congestion on CXR. No evidence of PNA, PTX. No concerns for COVID-19 exposure per brother. Ddx to include acute exacerbation of CHF, COPD, PE, less likely PNA, Covid-19 Pt decompensated shortly after admission and was intubated now extubated decompensation felt secondary to heart failure superimposed on baseline COPD -Continue Diuresis with Lasix. possible Pneumonia on CT with parenchymal infiltrates as below, COVID NEGATIVE- >initially ceftriaxone but de escalated to po doxycycline only. Procalcitonin normal today, 09/16 CTA 09/12/29 IMPRESSION: 1. Study is negative for pulmonary embolus. 2. Bibasilar parenchymal infiltrates. 3. Interstitial changes in the mid upper lungs bilaterally. (2) CAD (coronary artery disease): Patient with history of CAD. No reports of CP. Troponin 0.07 x2 EKG with nonspecific changes, rightward axis -Continue ASA 81mg daily -Continue Metoprolol 25mg daily ECHO with preserved EF so if HF would be HFpEF, there is notation of small pericardial effusion without tamponade physiology (3) Seizure: Family denies recent seizure no typically on medicaiton (4) TASH and COPD overlap syndrome: maintain brhochodialators (5) CHF (congestive heart failure): HFpEF -Diuresis with IV Lasix -Echocardiogram shows normal LV function, 50-55% no discussion of diastolic function -Continue metoprolol -Acute diastolic CHF (6) Edema of left lower extremity: LLE edema and cellulitis,, this has dramatically improved, she has some residual swelling but no erythema -Doppler no DVT but note of occlusion of left femoral and popliteal artery with collateral reconstitution -Ceftriaxone and vancomycin have been discontinued. Now on po doxycycline for coverage of skin and also copd related lung issues Ppx - Heparin TID, Protonix while on BiPAP Code - Full per discussion with family. Patient would not want retirement life support measures POC - Bill (brother) [phone] (7) Hypokalemia: Oral replacement. Serial labs. Present on Admission?: No Admission and Anticipated Discharge Date Admission Date: September 12, 2019 Subjective Chest x-ray continues to show evidence of CHF. Will administer parenteral Lasix every 12 hours and monitor urine output. Procalcitonin level is normal. Cardiac echo reveals normal left ventricular ejection fraction. She remains on oxygen at 4 L/min to maintain saturation at 92%. BNP has improved from 20,000 down to 5000. Review of Systems Review of Systems: Constitutional-no fever or chills ENT-no blurred vision, no double vision, no epistaxis, no sore throat Respiratory-no cough, no wheezing. Dyspnea on exertion noted Cardiac-no palpitations, no chest pain, no syncope GI-no nausea, vomiting, diarrhea, melena, hematochezia -no urinary retention, no urinary incontinence, no dysuria, no hematuria Musculoskeletal-no joint pain, no muscle tenderness Skin-no bruising, no rashes, no pruritus Neuro-no isolated weakness, no paresthesia, no weakness Psych-no depression, no anxiety Physical Exam Physical Exam: General-alert and oriented x3, no fevers, no chills HEENT-head atraumatic and normocephalic, TMs intact bilaterally, pupils equal and reactive to light, extraocular muscles intact Neck-no lymphadenopathy or thyromegaly, trachea midline Chest-diminished breath sounds bilaterally. Bibasilar inspiratory rales. No wheezing Cardiac-regular rate and rhythm, normal S1 and S2, no murmurs Abdomen-normal bowel sounds, nontender, no hepatosplenomegaly Extremities-no cyanosis, clubbing. Mild bilateral lower extremity edema noted below the knees Neuro-cranial nerves II through XII intact, motor and sensory function within normal limits, strength symmetrical 5/5, no focal deficits Psych-normal affect, normal mood Results & Data Results & Data ([facility]) Vital Signs (Past 12 Hours) Vital Signs Temp Pulse Pulse Pulse Resp BP Pulse Ox 09/17/19 13:27 76 18 92 09/17/19 11:22 94 09/17/19 10:55 36.5 C 78 20 118/56 L 90 09/17/19 08:00 72 09/17/19 07:43 74 18 92 09/17/19 07:41 77 18 76 L 09/17/19 07:16 36.5 C 74 18 131/70 91 09/17/19 04:15 36.9 C 74 18 119/67 90 09/17/19 03:45 75 Pulse Ox 09/17/19 13:27 09/17/19 11:22 09/17/19 10:55 09/17/19 08:00 09/17/19 07:43 09/17/19 07:41 09/17/19 07:16 09/17/19 04:15 09/17/19 03:45 92 Laboratory Results 09/17/19 07:01 09/17/19 06:52 PG Care Time/CCT Total # of Minutes Spent Total Time Spent with Patient: Total time spent is greater than 50% in coordination of care (as documented) at patient's floor/unit and/or counseling patient: Coding Level of Care Code 46926 Subseq Hosp Care Lvl 3 Diagnoses Hypoxemia R09.02 CAD (coronary artery disease) I25.10 Coronary Disease-Associated Artery/Lesion type: [place] artery [place] vs. transplanted heart: [place] heart Associated angina: without angina Seizure R56.9 TASH and COPD overlap syndrome G47.33; J44.9 CHF (congestive heart failure) I50.9 Heart failure type: unspecified Heart failure chronicity: unspecified Edema of left lower extremity R60.0 Hypokalemia E87.6 (1) CAD (coronary artery disease) Coronary Disease-Associated Artery/Lesion type: [place] artery [place] vs. transplanted heart: [place] heart Associated angina: without angina Qualified Code(s): I25.10 - Atherosclerotic heart disease of [place] coronary artery without angina pectoris (2) CHF (congestive heart failure) Heart failure type: unspecified Heart failure chronicity: unspecified Qualified Code(s): I50.9 - Heart failure, unspecified
[2019-09-17] MEDS: FUROSEMIDE 40 MG in SYRINGE 0 ML IV SCH (21:51)
[2019-09-18] MEDS: ALBUT/IPRATROP 3MG/0.5MG NEB 3 ML VIAL NEB SCH ×4 (00:01→19:19)
[2019-09-18] MEDS: HEPARIN SOD 5,000 UNIT/0.5 ML VIAL SQ SCH ×3 (05:53→21:22)
[2019-09-18] MEDS: LEVOTHYROXINE SODIUM 75 MCG TABLET PO SCH (06:01)
[2019-09-18] MEDS: FORMOTEROL 20 MCG/2 ML VIAL NEB SCH ×2 (07:21→19:17)
[2019-09-18] MEDS: BUDESONIDE 0.5 MG/2 ML VIAL (PULMICORT) NEB SCH ×2 (07:21→19:17)
[2019-09-18] MEDS: PANTOprazole 40 MG TAB PO SCH (07:49)
[2019-09-18] MEDS: ASPIRIN 81 MG ECTAB PO SCH (07:49)
[2019-09-18] MEDS: METOPROLOL TARTRATE 25 MG TAB PO SCH ×2 (07:49→21:26)
[2019-09-18] MEDS: POTASSIUM CHLORIDE 20 MEQ TABCR PO SCH (07:49)
[2019-09-18] MEDS: FUROSEMIDE 40 MG in SYRINGE 0 ML IV SCH ×2 (07:49→21:23)
[2019-09-18] MEDS: DOXYCYCLINE HYCLATE 100 MG CAP PO SCH ×2 (07:50→21:23)
[2019-09-18 08:08] LABS: BUN Creatinine Ratio 28.4 (10-20); Calcium 9.7 mg/dl (8.5-10.1); Creatinine Clr Calc Pharmacy 50.8 ml/min; Est GFR (African American) 56.6; Est GFR (Non-African American) 48.9; Magnesium 2.4 mg/dl (1.8-2.4); Phosphorus 2.9 mg/dl (2.5-4.9); Potassium 4.7 mmol/L (3.5-5.1)
--- NOTE | 2019-09-18 13:46 | Hospitalist Progress Note ---
Date of Service September 18, 2019 Assessment & Plan (1) Hypoxemia: Acute hypoxic respiratory failure. Continue to treat CHF. Wean oxygen as tolerated. Lasix diuresis. Repeat chest x-ray tomorrow. Decompensated shortly after admission and was intubated. Now extubated. Decompensation felt secondary to heart failure superimposed on baseline COPD -Continue Diuresis with Lasix. COVID NEGATIVE->initially ceftriaxone but de escalated to po doxycycline only. Procalcitonin normal 09/16 (2) CAD (coronary artery disease): Patient with history of CAD. No reports of CP. Troponin 0.07 x2 EKG with nonspecific changes, rightward axis -Continue ASA 81mg daily -Continue Metoprolol 25mg daily ECHO with preserved EF (3) Seizure: Family denies recent seizure no current medicaiton (4) TASH and COPD overlap syndrome: maintain brhochodialators (5) CHF (congestive heart failure): HFpEF. Acute on chronic diastolic CHF -Diuresis with IV Lasix -Echocardiogram shows normal LV function, 50-55% -Continue metoprolol (6) Edema of left lower extremity: LLE edema and cellulitis. Improved. -Doppler no DVT but note of occlusion of left femoral and popliteal artery with collateral reconstitution -Ceftriaxone and vancomycin have been discontinued. Now on po doxycycline Ppx - Heparin TID, Protonix while on BiPAP Code - Full per discussion with family. Patient would not want group home life support measures POC - Darek (brother) [phone] (7) Hypokalemia: Oral replacement. Serial labs. Admission and Anticipated Discharge Date Admission Date: September 12, 2019 Subjective Alert. Cardiac echo reveals normal ejection fraction. Pulmonary exam continues to reveal inspiratory rales. Chest x-ray done September 16 suggested worsening CHF. We will continue Lasix diuresis and repeat chest x-ray again tomorrow. Review of Systems Review of Systems: Constitutional-no fever or chills ENT-no blurred vision, no double vision, no epistaxis, no sore throat Respiratory-no cough, no wheezing. Dyspnea on exertion noted. Cardiac-no palpitations, no chest pain, no syncope GI-no nausea, vomiting, diarrhea, melena, hematochezia -no urinary retention, no urinary incontinence, no dysuria, no hematuria Musculoskeletal-no joint pain, no muscle tenderness Skin-no bruising, no rashes, no pruritus Neuro-no isolated weakness, no paresthesia, no weakness Psych-no depression, no anxiety Physical Exam Physical Exam: General-alert and oriented x3, no fevers, no chills HEENT-head atraumatic and normocephalic, TMs intact bilaterally, pupils equal and reactive to light, extraocular muscles intact Neck-no lymphadenopathy or thyromegaly, trachea midline Chest-diminished breath sounds bilaterally. Bibasilar inspiratory rales. No wheezing Cardiac-regular rate and rhythm, normal S1 and S2, no murmurs Abdomen-normal bowel sounds, nontender, no hepatosplenomegaly Extremities-no cyanosis, clubbing. Mild bilateral lower extremity edema noted below the knees Neuro-cranial nerves II through XII intact, motor and sensory function within normal limits, strength symmetrical 5/5, no focal deficits Psych-normal affect, normal mood Results & Data Results & Data ([facility]) Vital Signs (Past 12 Hours) Vital Signs Temp Pulse Pulse Resp BP Pulse Ox 09/18/19 12:50 19 95 09/18/19 11:07 36.4 C L 61 18 105/65 93 09/18/19 07:24 36.7 C 63 20 115/72 94 09/18/19 07:21 65 18 89 L 09/18/19 06:19 64 09/18/19 02:53 36.7 C 70 18 115/69 92 09/18/19 02:46 71 14 93 Laboratory Results 09/17/19 07:01 09/18/19 07:17 PG Care Time/CCT Total # of Minutes Spent Total Time Spent with Patient: Total time spent is greater than 50% in coordination of care (as documented) at patient's floor/unit and/or counseling patient: Coding Level of Care Code 17052 Subseq Hosp Care Lvl 3 Diagnoses Hypoxemia R09.02 CAD (coronary artery disease) I25.10 Coronary Disease-Associated Artery/Lesion type: [place] artery [place] vs. transplanted heart: [place] heart Associated angina: without angina Seizure R56.9 TASH and COPD overlap syndrome G47.33; J44.9 CHF (congestive heart failure) I50.9 Heart failure type: unspecified Heart failure chronicity: unspecified Edema of left lower extremity R60.0 Hypokalemia E87.6 (1) CAD (coronary artery disease) Coronary Disease-Associated Artery/Lesion type: [place] artery [place] vs. transplanted heart: [place] heart Associated angina: without angina Qualified Code(s): I25.10 - Atherosclerotic heart disease of [place] coronary artery without angina pectoris (2) CHF (congestive heart failure) Heart failure type: unspecified Heart failure chronicity: unspecified Qualified Code(s): I50.9 - Heart failure, unspecified
[2019-09-18] MEDS: POLYETHYLENE (MIRALAX) 17 GM PACK PO PRN (16:56)
[2019-09-19] MEDS: ALBUT/IPRATROP 3MG/0.5MG NEB 3 ML VIAL NEB SCH ×2 (00:51→07:01)
[2019-09-19] MEDS: LEVOTHYROXINE SODIUM 75 MCG TABLET PO SCH (06:03)
[2019-09-19] MEDS: HEPARIN SOD 5,000 UNIT/0.5 ML VIAL SQ SCH ×3 (06:03→21:09)
[2019-09-19 06:59] LABS: BUN Creatinine Ratio 33.6 (10-20); Calcium 9.3 mg/dl (8.5-10.1); Creatinine Clr Calc Pharmacy 48.5 ml/min; Est GFR (African American) 52.8; Est GFR (Non-African American) 45.5; Magnesium 2.4 mg/dl (1.8-2.4); Phosphorus 3.3 mg/dl (2.5-4.9); Potassium 4.6 mmol/L (3.5-5.1)
[2019-09-19] MEDS: FORMOTEROL 20 MCG/2 ML VIAL NEB SCH ×2 (07:01→19:35)
[2019-09-19] MEDS: BUDESONIDE 0.5 MG/2 ML VIAL (PULMICORT) NEB SCH ×2 (07:01→19:35)
[2019-09-19] MEDS: METOPROLOL TARTRATE 25 MG TAB PO SCH ×2 (07:28→21:09)
[2019-09-19] MEDS: ASPIRIN 81 MG ECTAB PO SCH (07:28)
[2019-09-19] MEDS: DOXYCYCLINE HYCLATE 100 MG CAP PO SCH ×2 (07:29→21:09)
[2019-09-19] MEDS: PANTOprazole 40 MG TAB PO SCH (07:29)
--- NOTE | 2019-09-19 08:14 | XRay Report ---
XR chest 2V PA/lateral CLINICAL HISTORY: CHF dyspnea COMPARISON STUDY: 09/17/2019 FINDINGS: Improving findings of congestive failure. Heart remains moderately enlarged. Unchanged bila teral atelectatic change. IMPRESSION: Improving congestive heart failure ACT 112: Negative or not required by law. The above report was generated using voice recognition software. It may contain grammatical, syntax or spelling errors. Electronically signed by: Alvaro Mauro M.D. 09/19/2019 8:12 AM
[2019-09-19] MEDS: FUROSEMIDE 40 MG in SYRINGE 0 ML IV SCH ×2 (09:14→21:09)
[2019-09-19] MEDS ORDERED: ALBUT/IPRATROP 3MG/0.5MG NEB 3 ML VIAL NEB PRN (09:38)
--- NOTE | 2019-09-19 19:07 | Hospitalist Progress Note ---
Date of Service September 19, 2019 Assessment & Plan (1) Hypoxemia: Decompensated shortly after admission and was intubated. Now extubated. Decompensation felt secondary to heart failure superimposed on baseline COPD Acute hypoxic respiratory failure. Continue to treat CHF. Wean oxygen as tolerated. Lasix diuresis. Repeat chest x-ray improved on 09/18 -Continue Diuresis with Lasix. COVID NEGATIVE->initially ceftriaxone but de escalated to po doxycycline only. Procalcitonin normal 09/16 (2) CAD (coronary artery disease): Patient with history of CAD. No reports of CP. Troponin 0.07 x2 EKG with nonspecific changes, rightward axis -Continue ASA 81mg daily -Continue Metoprolol 25mg daily ECHO with preserved EF (3) Seizure: Family denies recent seizure no current medicaiton (4) TASH and COPD overlap syndrome: maintain brhochodialators (5) CHF (congestive heart failure): HFpEF. Acute on chronic diastolic CHF -Diuresis with IV Lasix -Echocardiogram shows normal LV function, 50-55% -Continue metoprolol (6) Edema of left lower extremity: LLE edema and cellulitis. Improved. -Doppler no DVT but note of occlusion of left femoral and popliteal artery with collateral reconstitution -Ceftriaxone and vancomycin have been discontinued. Now on po doxycycline Ppx - Heparin TID, Protonix while on BiPAP Code - Full per discussion with family. Patient would not want parts counterman life support measures POC - Darek (brother) [phone] Pt preference for [place] on d/c Unable to take at present due to O2 recs being too high for that level of care (7) Hypokalemia: Oral replacement. Serial labs. Admission and Anticipated Discharge Date Admission Date: September 12, 2019 Subjective Pt feels she is doing better. She says she is not on O2 at home. She is eating without issue. SOB is better, but still some issues with moving around. Pt denies fever, chest pain, abd pain, n/v/c/d, LE pain or swelling. Review of Systems Review of Systems: Pertinent positives and negatives reviewed in HPI--all others negative Physical Exam Constitutional: WD/WN, vitals as above Eyes: normal visual rodgers by confrontation and + anicteric sclerae Neck: normal visual inspection and trachea midline Respiratory: normal respiratory effort; no respiratory distress Auscultation: + crackles (trace); no wheezes Cardiovascular: Rate/Rhythm: regular rate and regular rhythm Gastrointestinal (Abdomen): Inspection/Auscultation: abdomen not distended Percussion/Palpation: abdomen soft; abdomen nontender Musculoskeletal: Head/Neck/Chest: normocephalic and head atraumatic negative for edema, peripheral pulses intact Skin: no rashes, warm and dry Neurologic: awake; not confused Speech / Cognition: normal speech Psychiatric: A+Ox3, euthymic affect Results & Data Results & Data ([facility]) Vital Signs (Past 12 Hours) Vital Signs Temp Pulse Pulse Resp BP BP Pulse Ox 09/19/19 18:34 73 09/19/19 15:00 36.7 C 68 20 130/74 94 09/19/19 11:00 36.8 C 67 18 101/53 L 95 09/19/19 10:40 69 09/19/19 07:06 68 18 94 09/19/19 07:05 36.4 C L 68 18 105/66 92 PG Care Time/CCT Total # of Minutes Spent Total Time Spent with Patient: Total time spent is greater than 50% in coordination of care (as documented) at patient's floor/unit and/or counseling patient: Coding Level of Care Code 52327 Subseq Hosp Care Lvl 3 Diagnoses Hypoxemia R09.02 CAD (coronary artery disease) I25.10 Coronary Disease-Associated Artery/Lesion type: [place] artery [place] vs. transplanted heart: [place] heart Associated angina: without angina Seizure R56.9 TASH and COPD overlap syndrome G47.33; J44.9 CHF (congestive heart failure) I50.9 Heart failure type: unspecified Heart failure chronicity: unspecified Edema of left lower extremity R60.0 Hypokalemia E87.6 (1) CAD (coronary artery disease) Coronary Disease-Associated Artery/Lesion type: [place] artery [place] vs. transplanted heart: [place] heart Associated angina: without angina Qualified Code(s): I25.10 - Atherosclerotic heart disease of [place] coronary artery without angina pectoris (2) CHF (congestive heart failure) Heart failure type: unspecified Heart failure chronicity: unspecified Qualified Code(s): I50.9 - Heart failure, unspecified
[2019-09-20] MEDS: HEPARIN SOD 5,000 UNIT/0.5 ML VIAL SQ SCH ×3 (05:29→21:47)
[2019-09-20] MEDS: LEVOTHYROXINE SODIUM 75 MCG TABLET PO SCH (05:29)
[2019-09-20] MEDS: FORMOTEROL 20 MCG/2 ML VIAL NEB SCH ×2 (07:04→19:15)
[2019-09-20] MEDS: BUDESONIDE 0.5 MG/2 ML VIAL (PULMICORT) NEB SCH ×2 (07:04→19:14)
[2019-09-20] MEDS: DOXYCYCLINE HYCLATE 100 MG CAP PO SCH ×2 (09:05→21:47)
[2019-09-20] MEDS: ASPIRIN 81 MG ECTAB PO SCH (09:05)
[2019-09-20] MEDS: PANTOprazole 40 MG TAB PO SCH (09:06)
[2019-09-20] MEDS: METOPROLOL TARTRATE 25 MG TAB PO SCH ×2 (09:06→21:58)
[2019-09-20 09:21] LABS: BUN Creatinine Ratio 39.5 (10-20); Calcium 9.9 mg/dl (8.5-10.1); Creatinine Clr Calc Pharmacy 47.8 ml/min; Est GFR (African American) 51.3; Est GFR (Non-African American) 44.3; Magnesium 2.4 mg/dl (1.8-2.4); Potassium 4.4 mmol/L (3.5-5.1)
[2019-09-20 09:22] LABS: Phosphorus 3.8 mg/dl (2.5-4.9)
[2019-09-20] MEDS: FUROSEMIDE 40 MG in SYRINGE 0 ML IV SCH (10:04)
--- NOTE | 2019-09-20 13:28 | Hospitalist Progress Note ---
Date of Service September 20, 2019 Assessment & Plan (1) Hypoxemia: Decompensated shortly after admission and was intubated. Now extubated. Decompensation felt secondary to heart failure superimposed on baseline COPD Acute hypoxic respiratory failure. Continue to treat CHF. Wean oxygen as tolerated. Lasix diuresis. -Echocardiogram shows normal LV function, 50-55% Repeat chest x-ray improved on 09/18 Pt was treated with aggressive lasix diuresis, 40mg IV BID Improving and will attempt conversion to a lower maintenance PO dose with 40mg BID on 09/19 COVID NEGATIVE->initially ceftriaxone but de escalated to po doxycycline only. Procalcitonin normal 09/16 2 step prior to d/c (2) CAD (coronary artery disease): Patient with history of CAD. No reports of CP. Troponin 0.07 x2 EKG with nonspecific changes, rightward axis -Continue ASA 81mg daily -Continue Metoprolol 25mg daily ECHO with preserved EF (3) Seizure: Family denies recent seizure no current medicaiton (4) TASH and COPD overlap syndrome: maintain bronchodialators (5) CHF (congestive heart failure): HFpEF. Acute on chronic diastolic CHF -Diuresis with IV Lasix -Echocardiogram shows normal LV function, 50-55% -Continue metoprolol (6) Edema of left lower extremity: LLE edema and cellulitis. Improved. -Doppler no DVT but note of occlusion of left femoral and popliteal artery with collateral reconstitution -Ceftriaxone and vancomycin have been discontinued. Now on po doxycycline Ppx - Heparin TID, Protonix while on BiPAP Code - Full per discussion with family. 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 Serial labs. Admission and Anticipated Discharge Date Admission Date: September 12, 2019 Subjective Pt states she has not had SOB at rest or when she was up and getting cleaned up in the bathroom. She is eating without issue. Pt denies fever, chest pain, abd pain, n/v/c/d, LE pain or swelling. Review of Systems Review of Systems: Pertinent positives and negatives reviewed in HPI--all others negative Physical Exam Constitutional: WD/WN, vitals as above Eyes: normal visual rodgers by confrontation and + anicteric sclerae Neck: normal visual inspection and trachea midline Respiratory: normal respiratory effort; no respiratory distress Auscultation: no crackles and no wheezes Cardiovascular: Rate/Rhythm: regular rate and regular rhythm Gastrointestinal (Abdomen): Inspection/Auscultation: abdomen not distended Percussion/Palpation: abdomen soft; abdomen nontender Musculoskeletal: Head/Neck/Chest: normocephalic and head atraumatic Skin: no rashes, warm and dry Neurologic: awake; not confused Speech / Cognition: normal speech Psychiatric: A+Ox3, euthymic affect Results & Data Results & Data ([facility]) Vital Signs (Past 12 Hours) Vital Signs Temp Pulse Pulse Resp BP BP Pulse Ox 09/20/19 11:02 36.8 C 66 18 95/57 L 93 09/20/19 07:30 61 09/20/19 07:26 36.7 C 64 18 124/73 95 09/20/19 07:04 66 14 96 09/20/19 03:47 36.7 C 68 18 123/74 97 09/20/19 03:45 77 16 93 PG Care Time/CCT Total # of Minutes Spent Total Time Spent with Patient: Total time spent is greater than 50% in coordination of care (as documented) at patient's floor/unit and/or counseling patient: Coding Level of Care Code 03675 Subseq Hosp Care Lvl 3 Diagnoses Hypoxemia R09.02 CAD (coronary artery disease) I25.10 Coronary Disease-Associated Artery/Lesion type: [place] artery [place] vs. transplanted heart: [place] heart Associated angina: without angina Seizure R56.9 TASH and COPD overlap syndrome G47.33; J44.9 CHF (congestive heart failure) I50.9 Heart failure type: unspecified Heart failure chronicity: unspecified Edema of left lower extremity R60.0 Hypokalemia E87.6 (1) CAD (coronary artery disease) Coronary Disease-Associated Artery/Lesion type: [place] artery [place] vs. transplanted heart: [place] heart Associated angina: without angina Qualified Code(s): I25.10 - Atherosclerotic heart disease of [place] coronary artery without angina pectoris (2) CHF (congestive heart failure) Heart failure type: unspecified Heart failure chronicity: unspecified Qualified Code(s): I50.9 - Heart failure, unspecified
[2019-09-20] MEDS: FUROSEMIDE 40 MG TAB PO SCH (16:45)
[2019-09-21] MEDS: LEVOTHYROXINE SODIUM 75 MCG TABLET PO SCH (05:44)
[2019-09-21] MEDS: HEPARIN SOD 5,000 UNIT/0.5 ML VIAL SQ SCH ×3 (05:44→20:52)
[2019-09-21] MEDS: BUDESONIDE 0.5 MG/2 ML VIAL (PULMICORT) NEB SCH ×2 (07:14→19:29)
[2019-09-21] MEDS: FORMOTEROL 20 MCG/2 ML VIAL NEB SCH ×2 (07:14→19:30)
[2019-09-21] MEDS: ASPIRIN 81 MG ECTAB PO SCH (08:27)
[2019-09-21] MEDS: FUROSEMIDE 40 MG TAB PO SCH ×2 (08:27→17:11)
[2019-09-21] MEDS: METOPROLOL TARTRATE 25 MG TAB PO SCH ×2 (08:27→20:52)
[2019-09-21] MEDS: DOXYCYCLINE HYCLATE 100 MG CAP PO SCH ×2 (08:27→20:52)
[2019-09-21] MEDS: PANTOprazole 40 MG TAB PO SCH (08:27)
--- NOTE | 2019-09-21 15:49 | Hospitalist Progress Note ---
Date of Service September 21, 2019 Assessment & Plan (1) Hypoxemia: Decompensated shortly after admission and was intubated. Now extubated. Decompensation felt secondary to heart failure superimposed on baseline COPD Acute hypoxic respiratory failure. Continue to treat CHF. Wean oxygen as tolerated. Lasix diuresis. -Echocardiogram shows normal LV function, 50-55% Repeat chest x-ray improved on 09/18 Pt was treated with aggressive lasix diuresis, 40mg IV BID Improving and will attempt conversion to a lower maintenance PO dose with 40mg BID on 09/19 COVID NEGATIVE->initially ceftriaxone but de escalated to po doxycycline only. Procalcitonin normal 09/16 2 step prior to d/c (2) CAD (coronary artery disease): Patient with history of CAD. No reports of CP. Troponin 0.07 x2 EKG with nonspecific changes, rightward axis -Continue ASA 81mg daily -Continue Metoprolol 25mg daily ECHO with preserved EF (3) Seizure: Family denies recent seizure no current medicaiton (4) TASH and COPD overlap syndrome: maintain bronchodialators (5) CHF (congestive heart failure): HFpEF. Acute on chronic diastolic CHF -Diuresis with IV Lasix -Echocardiogram shows normal LV function, 50-55% -Continue metoprolol (6) Edema of left lower extremity: LLE edema and cellulitis. Improved. -Doppler no DVT but note of occlusion of left femoral and popliteal artery with collateral reconstitution -Ceftriaxone and vancomycin have been discontinued. Now on po doxycycline Ppx - Heparin TID, Protonix while on BiPAP Code - Full per discussion with family. 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 Serial labs. Admission and Anticipated Discharge Date Admission Date: September 12, 2019 Subjective Pt continues to deny SOB at rest or with activity. She is eating without issue. Pt denies fever, chest pain, abd pain, n/v/c/d, LE pain or swelling. Review of Systems Review of Systems: Pertinent positives and negatives reviewed in HPI--all others negative Physical Exam Constitutional: WD/WN, vitals as above Eyes: normal visual rodgers by confrontation and + anicteric sclerae Neck: normal visual inspection and trachea midline Respiratory: normal respiratory effort; no respiratory distress Auscultation: no crackles and no wheezes Cardiovascular: Rate/Rhythm: regular rate and regular rhythm Gastrointestinal (Abdomen): Inspection/Auscultation: abdomen not distended Percussion/Palpation: abdomen soft; abdomen nontender Musculoskeletal: Head/Neck/Chest: normocephalic and head atraumatic Skin: no rashes, warm and dry Neurologic: awake; not confused Speech / Cognition: normal speech Psychiatric: A+Ox3, euthymic affect Results & Data Results & Data ([facility]) Vital Signs (Past 12 Hours) Vital Signs Temp Pulse Pulse Resp BP BP Pulse Ox 09/21/19 15:39 37.0 C 71 18 110/74 96 09/21/19 15:37 67 09/21/19 10:56 36.9 C 68 16 129/72 90 09/21/19 07:29 72 09/21/19 07:27 36.6 C 86 20 120/69 92 09/21/19 07:17 72 18 92 PG Care Time/CCT Total # of Minutes Spent Total Time Spent with Patient: Total time spent is greater than 50% in coordination of care (as documented) at patient's floor/unit and/or counseling patient: Coding Level of Care Code 96366 Subseq Hosp Care Lvl 3 Diagnoses Hypoxemia R09.02 CAD (coronary artery disease) I25.10 Coronary Disease-Associated Artery/Lesion type: [place] artery [place] vs. transplanted heart: [place] heart Associated angina: without angina Seizure R56.9 TASH and COPD overlap syndrome G47.33; J44.9 CHF (congestive heart failure) I50.9 Heart failure type: unspecified Heart failure chronicity: unspecified Edema of left lower extremity R60.0 Hypokalemia E87.6 (1) CAD (coronary artery disease) Coronary Disease-Associated Artery/Lesion type: [place] artery [place] vs. transplanted heart: [place] heart Associated angina: without angina Qualified Code(s): I25.10 - Atherosclerotic heart disease of [place] coronary artery without angina pectoris (2) CHF (congestive heart failure) Heart failure type: unspecified Heart failure chronicity: unspecified Quali fied Code(s): I50.9 - Heart failure, unspecified
[2019-09-22] MEDS ORDERED: METOPROLOL TARTRATE 25 MG TAB PO SCH
[2019-09-22] MEDS: HEPARIN SOD 5,000 UNIT/0.5 ML VIAL SQ SCH ×2 (06:00→13:50)
[2019-09-22] MEDS: LEVOTHYROXINE SODIUM 75 MCG TABLET PO SCH (06:00)
[2019-09-22] MEDS: BUDESONIDE 0.5 MG/2 ML VIAL (PULMICORT) NEB SCH (07:05)
[2019-09-22] MEDS: FORMOTEROL 20 MCG/2 ML VIAL NEB SCH (07:05)
[2019-09-22] MEDS: FUROSEMIDE 40 MG TAB PO SCH ×2 (08:05→17:15)
[2019-09-22] MEDS: DOXYCYCLINE HYCLATE 100 MG CAP PO SCH (08:05)
[2019-09-22] MEDS: PANTOprazole 40 MG TAB PO SCH (08:05)
[2019-09-22] MEDS: METOPROLOL TARTRATE 25 MG TAB PO SCH (08:05)
[2019-09-22] MEDS: ASPIRIN 81 MG ECTAB PO SCH (08:05)
[2019-09-22] MEDS: POLYETHYLENE (MIRALAX) 17 GM PACK PO PRN (08:12)
--- NOTE | 2019-09-22 17:46 | Discharge Summary ---
Date of Service September 22, 2019 Admission HPI Per Admitting Provider Liane Brewer is a 64yo female presenting as a direct admission from [facility]. Patient is encephalopathic at present and is unable to answer questions reliably at this time. History obtained through chart review and telephone discussion with family. Patient's brother reports that patient was acting strangely today, mildly confused and somnolent as well as having poor balance. Also with complaint of LLE pain and swelling. She denied fevers or cough. Brother reports that patient rarely leaves her house and is not concerned about exposure to COVID-19. She presented to [facility] with complaint of bilateral LE edema, L>R as well as abdominal swelling, inability to void. She was noted to be hypoxic and cyanotic on arrival with saturations of 50-52%. She was placed on Bipap with reported improvement in her mental status. Exam with bilateral LE edema, L>R. She was administered 60mg of lasix IV as well as Ceftriaxone 2gm IV. CXR with reported increased vascular congestion. Transfer to [facility] requested because of inability to obtain a LE doppler during the weekends at [facility]. Patient has no listed PCP. [facility]: Lasix 60mg IV, Ceftriaxone 2gm, BiPAP BNP=27,900 Lactate=1.5 AB.28/68/64 on 100% FiO2 Principal Diagnosis Pt is feeling fine and would like to go home. Denies SOB at rest or with movement. Has been OOB around her room with O2. Pt denies fever, chest pain, abd pain, n/v/c/d, LE pain or swelling. Discharge Exam Constitutional WD/WN, vitals as above Eyes normal visual rodgers by confrontation and + anicteric sclerae Neck normal visual inspection and trachea midline Respiratory normal respiratory effort; no respiratory distress Auscultation: no crackles and no wheezes Cardiovascular Rate/Rhythm: regular rate and regular rhythm Gastrointestinal (Abdomen) Inspection/Auscultation: abdomen not distended Percussion/Palpation: abdomen soft; abdomen nontender Musculoskeletal Head/Neck/Chest: normocephalic and head atraumatic Skin no rashes, warm and dry Neurologic awake; not confused Speech / Cognition: normal speech Psychiatric A+Ox3, euthymic affect Discharge Data Allergies Allergy/AdvReac Type Severity Reaction Status Date / Time No Known Allergies Allergy Verified 07/31/20 23:09 Consultations 09/13/19 03:16 Consult Case Management - Discharge Planning Routine 09/13/19 06:51 Consult Tile Layer Drainage Routine Ordered Studies 09/12/19 23:45 US venous doppler LE LT Urgent 09/13/19 00:51 CT angio chest PE protocol Urgent 09/13/19 05:34 CT head/brain wo con Stat Hospital Course (1) Hypoxemia: Decompensated shortly after admission and was intubated. Now extubated. Decompensation felt secondary to heart failure superimposed on baseline COPD Acute hypoxic respiratory failure. Continue to treat CHF. Wean oxygen as tolerated. Lasix diuresis. -Echocardiogram shows normal LV function, 50-55% Repeat chest x-ray improved on 09/18 Pt was treated with aggressive lasix diuresis, 40mg IV BID Improving and will attempt conversion to a lower maintenance PO dose with 40mg BID on 09/19 COVID NEGATIVE->initially ceftriaxone but de escalated to po doxycycline only, pt to finish course as outpt. Procalcitonin normal 09/16 2 step prior to d/c with recs for home with 2L continuous Pt is agreeable to home O2 use Overnight pulse ox with desats, pt set up with home BIPAP which she is in agreement with Script given for new walker (2) CAD (coronary artery disease): Patient with history of CAD. No reports of CP. Troponin 0.07 x2 EKG with nonspecific changes, rightward axis -Continue ASA 81mg daily -Continue Metoprolol 25mg daily ECHO with preserved EF (3) Seizure: Family denies recent seizure no current medicaiton (4) TASH and COPD overlap syndrome: maintain bronchodialators (5) CHF (congestive heart failure): HFpEF. Acute on chronic diastolic CHF -Diuresis with IV Lasix -Echocardiogram shows normal LV function, 50-55% -Continue metoprolol (6) Edema of left lower extremity: LLE edema and cellulitis. Improved. -Doppler no DVT but note of occlusion of left femoral and popliteal artery with collateral reconstitution -Ceftriaxone and vancomycin have been discontinued. Now on po doxycycline Ppx - Heparin TID, Protonix while on BiPAP Code - Full per discussion with family. Patient would not want custodial life support measures POC - Darek (brother) [phone] upated on 09/19 and is in agreement with this plan Pt preference for [place] on d/c, however pt doing much better and no longer qualifies for rehab Awaiting insurance auth for home PT/OT, [facility] (7) Hypokalemia: Oral replacement. Serial labs. Total Time Total Time Spent Total Time Spent (In Minutes): >30 Total Time Includes: Examination of the Patient, Discharge Planning, Medication Reconciliation, Communication With Other Providers and Other Discharge Plan Discharge Items Patient Disposition: Home - Home Health Services Reason For Visit: ACUTE CHF Discharge Diagnosis: Acute CHF and COPD with Pneumonia Activity: Resume your previous activity Non-emergency contact: Primary Care Provider Call non-emergency contact if: you have any medication questions and your symptoms worsen Follow-up/Referrals: PCP,NO [Physician] - Diet: Low Sodium (2gm) Addtl Attending Provider Instructions: You should be seen by your primary care doctor later this week Pending Studies at Discharge: No Stand-Alone Forms: My [employer], Smoking Cessation Medications and DC Order Prescriptions: New furosemide 40 mg Tablet 40 mg PO [id number] Qty: 60 RF: 0 doxycycline hyclate 100 mg Capsule 100 mg PO BID Qty: 8 RF: 0 aspirin 81 mg Tablet,Delayed Release (Dr/Ec) 81 mg PO DAILY Qty: 30 RF: 0 budesonide 0.5 mg/2 mL Suspension For Nebulization 0.5 mg NEB BIDR Qty: 60 RF: 0 metoprolol tartrate 25 mg Tablet 12.5 mg PO BID Qty: 60 RF: 0 Continued metformin 500 mg tablet 500 mg PO BID RF: 0 levothyroxine 75 mcg tablet 75 mcg PO DAILY RF: 0 pantoprazole 40 mg tablet,delayed release (DR/EC) 40 mg PO DAILY RF: 0 Anoro Ellipta 62.5-25 mcg/actuation blister with device 1 INHALATION DAILY RF: 0 Discontinued bumetanide 1 mg tablet 1 mg PO BID RF: 0 metoprolol succinate 25 mg tablet extended release 24 hr 25 mg PO DAILY RF: 0 Discharge Orders: Discharge Order (Routine); Ordered 09/22/19 Ordered By: Yara Branch/Other Patient Handouts: A1C Admission Data Admit Date/Time: 09/12/19 22:00 Attending Provider: Yara Fournier Admit Provider: Susana Stoddard Primary Care Provider: Gene Mendez Other Providers: Merritt Lazcano ; [facility] Other Interventions: Discharge Summary Assessment (RN) Last Done: 09/22/19 14:42 DC Date/Time DO NOT enter until pt leaves facility: 09/22/19 18:38 Coding Level of Care Code D/C Day Management >30 mins Diagnoses Hypoxemia R09.02 CAD (coronary artery disease) I25.10 Associated angina: without angina Coronary Disease-Associated Artery/Lesion type: [place] artery [place] vs. transplanted heart: [place] heart Seizure R56.9 TASH and COPD overlap syndrome G47.33; J44.9 CHF (congestive heart failure) I50.9 Heart failure chronicity: unspecified Heart failure type: unspecified Edema of left lower extremity R60.0 Hypokalemia E87.6
[2019-09-22] MEDS ORDERED: Nursing to Pharmacy Communication STA ×2 (18:16→18:17)
[2019-09-22] MEDS ORDERED: DOXYCYCLINE HOME PACK 100 MG/CAP PO ONE (18:30)
== END 2019-09-22 18:38 | disposition home health service (06) | DRG 208 ==
LOC: SUATTDRO 22:00 → 2S 22:00 → 1E 09-13 00:58 → 2W 09-15 14:30